=== PATIENT | female | born 1935 | race Caucasian/White ===

== ENCOUNTER 2016-07-15 10:01 | Outpatient (CLI) | payer MEDICARE, OTHER | END 2016-07-15 10:02 | disposition home or self-care (01) | DX: E78.00 Pure hypercholesterolemia, unspecified (principal); R73.01 Impaired fasting glucose ==

== ENCOUNTER 2016-11-18 10:22 | Outpatient (CLI) | payer MEDICARE, OTHER ==
[2016-11-20 21:07] LABS: TEST RESULT REPORT (())
== END 2016-11-18 10:23 | disposition home or self-care (01) ==
LOC: LAB 10:22
PROVIDERS: ATTEND Internal Medicine Rheumatology
DX: Z51.81 Encounter for therapeutic drug level monitoring (principal)
CPT/HCPCS: 36415; 81599

== ENCOUNTER 2017-03-29 09:00 | Outpatient (CLI) | payer MEDICARE, OTHER ==
[2017-03-29 10:28] LABS: BILIRUBIN,URINE NEGATIVE (NEGATIVE)
[2017-03-29 10:38] LABS: UR CULTURE IF IND INDICATED
== END 2017-03-29 09:01 | disposition home or self-care (01) ==
LOC: LAB.R 09:00
PROVIDERS: ATTEND Physician Assistant
DX: R10.9 Unspecified abdominal pain (principal)
CPT/HCPCS: 81001; 87086

== ENCOUNTER 2017-04-16 10:05 | Outpatient (CLI) | payer MEDICARE, OTHER ==
--- NOTE | 2017-04-16 16:35 | Nuclear Medicine Report ---
EXAM: BONE SCAN EXAM DATE: 04/16/2017 02:02 PM. CLINICAL HISTORY: Breast cancer left. COMPARISON: 11/11/2016. TECHNIQUE: Following the intravenous administration of 30 mCi of technetium 99m MDP and an appropriat e delay, a whole-body scan was performed in anterior and posterior projections. Site-specific spot vi ews of the region of interest were obtained in various projections. FINDINGS: Exam Quality: Normal overall osseous radiotracer uptake. Physiological tracer uptake in bilateral col lecting systems. Skull: No focal uptake. Thorax: There is moderately increased tracer uptake in the left scapula, posterior left first rib and anterior right third rib. The findings are suggestive of metastatic disease. Correlation with noncon trast CT of the chest is recommended. Pelvis: No focal lesions. Spine: There is markedly increased tracer uptake in the region of the L3-L4 and L2-L3 endplates consi stent with visible osteoarthritis on the MRI of 11/11/2016. There is moderately increased tracer upta ke in the region of the right and left T10-T11 facet joints, also visible on the recent MRI. Moderate increased tracer uptake in the right lower cervical facet joints consistent with osteoarthri tis. IMPRESSION: 1. Foci of abnormal tracer uptake in the right scapula, right third rib and left first rib, which may represent metastatic disease. Correlation with noncontrast CT of the chest is recommended. 2. Markedly increased tracer uptake in the lumbar spine, lower thoracic spine, and right lower cervic al facet joints consistent with osteoarthritis. [facility] Referring Provider Line: [phone] SITE ID: [id number]
== END 2017-04-16 10:06 | disposition home or self-care (01) ==
LOC: DI 10:05
PROVIDERS: ATTEND Internal Medicine
DX: C50.912 Malignant neoplasm of unspecified site of left female breast (principal)
CPT/HCPCS: 78306; A9503

== ENCOUNTER 2018-05-02 08:46 | Outpatient (CLI) | payer MEDICARE, OTHER ==
--- NOTE | 2018-05-02 15:31 | Nuclear Medicine Report ---
Reason: BREAST CA, BONE METS, INCREASE BACK PAIN Procedure Date: 05/02/2018 Accession Number: [id number] / [id number] Procedure: NM - Bone Whole Body CPT Code: FULL RESULT: EXAM: BONE SCAN EXAM DATE: 05/02/2018 02:27 PM. CLINICAL HISTORY: BREAST CA, BONE METS, INCREASE BACK PAIN. COMPARISON: BONE SCAN 04/16/2017 12:22 PM LUMBAR SPINE MRI W/WO 04/13/2018 9:12 AM. Thoracic spine MRI 04/13/2018 TECHNIQUE: Following the intravenous administration of 32 mCi of technetium 99m MDP and an appropriate delay, a whole-body scan was performed in anterior and posterior projections. Site-specific spot views of the region of interest were obtained in various projections. FINDINGS: Normal renal radiotracer uptake and bladder activity. Normal soft tissue activity. Overall normal osseous uptake. Similar moderate focal uptake at the posterior left first rib, anterior right third rib, right scapula, suspicious for metastatic disease. Similar marked uptake at the mid lumbar spine at approximately L3, which may correspond to pathologic compression fracture by comparison MR. Similar moderate uptake at approximately L4, indeterminate but possibly degenerative. Similar other multilevel cervical, thoracic, lumbar spinal uptake most pronounced at approximately T8-T9, indeterminate but possibly degenerative. Similar moderate focal uptake at the left posterior ilium, suspicious for metastatic disease. IMPRESSION: 1. Overall similar multifocal skeletal uptake, as noted above, with several lesions suspicious for metastatic disease. [facility]
== END 2018-05-02 08:47 | disposition home or self-care (01) ==
LOC: DI 08:46
PROVIDERS: ATTEND Nurse Practitioner Adult Health
DX: C50.919 Malignant neoplasm of unspecified site of unspecified female breast (principal); C79.51 Secondary malignant neoplasm of bone
CPT/HCPCS: 78306

== ENCOUNTER 2018-08-29 08:13 | Outpatient (CLI) | payer MEDICARE, OTHER ==
[2018-08-29] MEDS ORDERED: IOVERSOL 320 50 ML VIAL ONE (08:32)
[2018-08-29] MEDS ORDERED: IOVERSOL 320 100 ML VIAL IVP ONE ×2 (08:32→15:20)
[2018-08-29 08:38] LABS: CALCIUM 9.4 mg/dL (8.5-10.3); CREATININE 0.6 mg/dL (0.4-1.0)
[2018-08-29] MEDS ORDERED: GADOBUTROL 7.5 MMOL/7.5 ML VIAL ONE (09:33)
[2018-08-29] MEDS ORDERED: GADOBUTROL 7.5 MMOL/7.5 ML VIAL IVP ONE (10:06)
[2018-08-29] MEDS ORDERED: IOVERSOL 320 50 ML VIAL PO ONE (15:20)
--- NOTE | 2018-08-30 07:47 | MRI Report ---
Reason: METASTATIC BREAST CA, WORSENING LEFT HIP Procedure Date: 08/29/2018 Accession Number: [id number] / [id number] Procedure: MRI - Lumbar Spine W/WO CPT Code: FULL RESULT: EXAM: MRI LUMBAR SPINE WITHOUT AND WITH CONTRAST EXAM DATE: 08/29/2018 10:05 AM. CLINICAL HISTORY: Worsening left side hip pain. Worsening back pain. History of metastatic breast cancer. COMPARISONS: LUMBAR SPINE W/WO 04/13/2018 9:12 AM. TECHNIQUE: Multiplanar, multisequence T1-weighted and fluid-sensitive sequences of the lumbar spine from T12 to S1 before and after administration of intravenous contrast. Other: None. IV contrast: Without and with 7.5 mL Gadavist. FINDINGS: Neurologic Structures: The conus terminates at L1-L2. Unremarkable appearance of the conus medullaris. Alignment: No significant change of alignment. Multiple subluxations and S-shaped scoliosis are again noted. Bone Marrow: Five [id number] lumbar vertebral bodies are assumed. Multiple foci of potentially pathologic fatty marrow signal replacement are present at multiple levels. Larger enhancing lesion of the upper S1 vertebral body, now 15 mm, previously 4-5 mm, findings suspicious for growing bone metastasis. Stable approximately 16 mm enhancing presumed bone metastasis in the right upper anterior L4 vertebral body. Again seen are findings consistent with extensive metastatic tumor replacement throughout much of the L3 vertebra especially right of midline associated with moderately prominent but nonprogressive presumed pathologic compression fracture. No other evidence for acute or progressive lumbar vertebral body height loss. Disk Levels/Facets: T12-L1: Stable degenerative changes. No significant or progressive stenosis. L1-L2: Stable degenerative changes. Foraminal stenosis notable on the right as before. L2-L3: Prominent L2 on L3 anterolisthesis again noted. Advanced degenerative disk disease and facet arthropathy is again noted and there is moderate to severe stenosis of the central canal, lateral recesses and right neural foramen. These findings appear stable. The left neural foramen is patent. No new or progressive focal disk herniation. L3-L4: Stable advanced degenerative changes. Marked facet arthropathy with ligamentum flavum thickening. Again seen is a large nearly 1 cm disk extrusion left of midline protruding just above the inferior L3 endplate associated with severe left lateral recess stenosis. Moderate to marked central canal stenosis is also present. Stable appearing moderate to severe foraminal stenosis. L4-L5: Stable chronic advanced degenerative changes. The degree of stenosis appears stable, most severe involving the left neural foramen. L5-S1: Stable prominent chronic degenerative changes. No additional stenosis. Moderate foraminal stenosis bilaterally. Spinal Canal: Stable 5 mm enhancing dural based nodule at the posterior aspect of the central canal at the T10-T11 level. This may represent metastatic tumor or may be degenerative. No obvious progression. No other evidence for new or enlarging central canal or epidural enhancing mass. Musculature: Diffuse fatty atrophy. Other: None. IMPRESSION: 1. Malalignment, not significantly changed. 2. Chronic advanced degenerative changes with potentially significant multilevel, multizone lumbar stenosis, not significantly changed. 3. Enlarging metastatic bone nodule in the S1 vertebral body. 4. No other definite evidence for progression of enhancing tumor. 5. Unchanged extensive L3 vertebra deformity with compression fracture that is likely pathologic but shows no evidence for interval progression. 6. No new vertebral body compression fracture. Comment: The following findings are so common in adults without low back pain that while we report their presence, they must be interpreted with caution and in the context of the clinical situation. (Reference Annitak et al, Spine 2001) Prevalence of findings in patients without low back pain: Disk degeneration (any evidence): 92% Disk desiccation/T2 signal loss: 83% Disk height loss: 56% Disk bulge: 64% Disk protrusion: 32% Annular tear/high intensity zone: 38% [facility]
--- NOTE | 2018-08-30 22:33 | CT Report ---
Reason: METASTATIC BREAST CA, WORSENING LEFT HIP/PELVIC/LO Procedure Date: 08/29/2018 Accession Number: [id number] / [id number] Procedure: CT - Abdomen/Pelvis W CPT Code: FULL RESULT: EXAM: CT ABDOMEN AND PELVIS EXAM DATE: 08/29/2018 10:10 AM. CLINICAL HISTORY: Metastatic breast cancer. Worsening back/hip/pelvic pain. COMPARISONS: CT abdomen 06/28/2015. MRI lumbar spine 08/29/2018. TECHNIQUE: Routine helical CT imaging was performed through the abdomen and pelvis. IV contrast: 90 cc Optiray 320. Enteric contrast: Yes. Reconstructions: Coronal and sagittal. In accordance with CT protocol optimization, one or more of the following dose reduction techniques were utilized for this exam: automated exposure control, adjustment of mA and/or KV based on patient size, or use of iterative reconstructive technique. FINDINGS: Lung Bases: Interval small left pleural effusion. Atelectasis versus scarring mainly in the lung periphery. Nonspecific mild thickening lateral basilar left oblique fissure. Liver: Stable size and contour without suspicious lesion. Gallbladder/Bile Ducts: No dilated bile duct status post remote cholecystectomy. Spleen: No splenomegaly. Stable small hypodensities again seen, likely cysts or hemangiomas. Pancreas: Unremarkable for age. Adrenal Glands: No nodules. Kidneys: No hydronephrosis or axel renal atrophy. There is contrast excretion in both intrarenal collecting systems. A persistent 3 mm nonobstructive lower pole right intrarenal calculus. 6 mm hyperdensity in posterior left upper pole, uncertain if stone versus excreted contrast. Peritoneal Cavity/Bowel: No intestinal dilatation. Contracted stomach and small hiatus hernia. Colonic diverticulosis. Limited colonic detail due to variable luminal contraction and incomplete opacification. Apparent thickening/relative narrowing of the hepatic flexure and proximal transverse colon could be artifactual. Lipomatous changes of the ileocecal valve as before. The cecum is not well distended. Appendix not seen. No free fluid, free air or mesenteric adenopathy. Retroperitoneum: No mass or adenopathy. Pelvic Organs: Intact bladder. Hysterectomy. No adnexal mass. No abnormal fluid collection or adenopathy. Vasculature: Atherosclerosis including scattered calcified plaques of the tortuous abdominal aorta and iliac arteries. No aneurysm. Variant retroaortic left renal vein. Bones: Similar scoliosis, degenerative change, and chronic L3 compression deformity. See report of recent lumbar MRI. No acute fracture identified. IMPRESSION: 1. No obvious solid visceral metastasis. 2. Right and possible left nephrolithiasis. No hydronephrosis. 3. Interval small left pleural effusion. 4. Colonic diverticulosis. No bowel obstruction. Limited colonic detail, as described. 5. Bony findings as noted. See report of recent lumbar spine MRI. [facility]
== END 2018-08-29 08:14 | disposition home or self-care (01) ==
LOC: DI 08:13
PROVIDERS: ATTEND Radiology Therapeutic Radiology
DX: C50.912 Malignant neoplasm of unspecified site of left female breast (principal); C79.51 Secondary malignant neoplasm of bone; Z17.0 Estrogen receptor positive status [ER+]; M47.9 Spondylosis, unspecified; M43.16 Spondylolisthesis, lumbar region; M51.36 Other intervertebral disc degeneration, lumbar region; M48.061 Spinal stenosis, lumbar region without neurogenic claudication; M51.37 Other intervertebral disc degeneration, lumbosacral region; M48.07 Spinal stenosis, lumbosacral region; N20.0 Calculus of kidney; J90 Pleural effusion, not elsewhere classified; K57.30 Diverticulosis of large intestine without perforation or abscess without bleeding
CPT/HCPCS: 36415; 72158; 74177; 80048; A9585; Q9967

== ENCOUNTER 2018-12-13 09:52 | Outpatient (CLI) | payer MEDICARE, OTHER ==
--- NOTE | 2018-12-14 12:00 | Nuclear Medicine Report ---
Reason: BREAST CANCER Procedure Date: 12/13/2018 Accession Number: [id number] / [id number] Procedure: NM - Bone Whole Body CPT Code: FULL RESULT: EXAM: BONE SCAN EXAM DATE: 12/13/2018 02:37 PM. CLINICAL HISTORY: Breast cancer. COMPARISON: BONE SCAN 05/02/2018 9:00 AM ABDOMEN/PELVIS W/ 08/29/2018 10:08 AM LUMBAR SPINE W/WO 08/29/2018 9:35 AM BONE SCAN 04/16/2017 12:22 PM. TECHNIQUE: Following the intravenous administration of 31.9 mCi of technetium 99m MDP and an appropriate delay, a whole-body scan was performed in anterior and posterior projections. Site-specific spot views of the region of interest were obtained in various projections. FINDINGS: Exam Quality: Normal overall osseous radiotracer uptake. Physiological tracer uptake in bilateral collecting systems. Skull: No focal uptake. Thorax: Stable foci of increased uptake in the left posterior first rib, right anterior third rib, and upper right scapula. Pelvis: Stable small focus of increased uptake in the posterior left iliac bone. Spine: Persistent focal areas of increased uptake in L3, L4, T8-T9, and T5. Stable foci of increased uptake on the right side of the mid cervical spine and on the right side of the upper lumbar spine, likely degenerative. Extremities: There is a tiny focus in the intertrochanteric left femur which may be new compared to prior. There are bilateral knee prostheses noted. IMPRESSION: 1. A tiny focus of increased uptake in the intertrochanteric left femur appears new compared to the prior exam. 2. Otherwise, stable findings. [facility]
== END 2018-12-13 09:53 | disposition home or self-care (01) ==
LOC: DI 09:52
PROVIDERS: ATTEND Internal Medicine Hematology & Oncology
DX: C50.912 Malignant neoplasm of unspecified site of left female breast (principal)
CPT/HCPCS: 78306

== ENCOUNTER 2019-03-13 15:25 | Outpatient (CLI) | payer MEDICARE, OTHER ==
--- NOTE | 2019-03-13 16:29 | XRAY Report ---
Reason: SHORTNESS OF BREATH Procedure Date: 03/13/2019 Accession Number: [id number] / [id number] Procedure: XR - Chest 2 View X-Ray CPT Code: 13269 Final Report FULL RESULT: EXAM: CHEST RADIOGRAPHY EXAM DATE: 03/13/2019 03:36 PM. CLINICAL HISTORY: Shortness of breath. COMPARISON: CHEST 2 VIEW PA/LAT 06/10/2014 6:16 PM. TECHNIQUE: 2 views. FINDINGS: Lungs/Pleura: No focal opacities evident. Blunting of the costophrenic sulci, similar to the prior, favors chronic pleural thickening more than small effusions. No pneumothorax. Normal volumes. Mediastinum: Heart and mediastinal contours are unremarkable. Other: Stable operative changes of left mastectomy. Interval anterior wedging compression of T8 vertebral body with loss of 90% of the anterior bone height. Probable mild compression of T10 as well. IMPRESSION: No acute infiltrate or edema. Interval anterior wedging compression fractures T8 and T10. [facility]
== END 2019-03-13 15:26 | disposition home or self-care (01) ==
LOC: DI 15:25
PROVIDERS: ATTEND Family Medicine
DX: R06.02 Shortness of breath (principal); J45.909 Unspecified asthma, uncomplicated; M48.54XA Collapsed vertebra, not elsewhere classified, thoracic region, initial encounter for fracture
CPT/HCPCS: 71046

== ENCOUNTER 2019-03-15 07:37 | Outpatient (CLI) | payer MEDICARE, OTHER ==
[2019-03-15 08:02] LABS: BASOPHILS # (AUTO) 0.1 10^3/uL (0.0-0.1); BASOPHILS % (AUTO) 1.3 %; EOSINOPHILS # (AUTO) 0.2 10^3/uL (0.0-0.7); EOSINOPHILS % (AUTO) 4.6 %; HGB - HEMOGLOBIN 12.8 g/dL (12.0-16.0); LYMPHOCYTES # (AUTO) 1.6 10^3/uL (1.5-3.5); LYMPHOCYTES % (AUTO) 39.5 %; MEAN CORPUSCULAR HEMOGLOBIN 29.9 pg (27.0-31.0); MEAN CORPUSCULAR HGB CONC 32.3 g/dL (32.0-36.0); MEAN CORPUSCULAR VOLUME 92.5 fL (81.0-99.0); MONOCYTES # (AUTO) 0.6 10^3/uL (0.0-1.0); MONOCYTES % (AUTO) 15.4 %; NEUTROPHILS # (AUTO) 1.5 10^3/uL (1.5-6.6); NEUTROPHILS % (AUTO) 38.7 %; PLT - PLATELET COUNT 265 10^3/uL (130-450); RED BLOOD COUNT 4.28 10^6/uL (4.20-5.40); RED CELL DISTRIBUTION WIDTH 16.2 % (12.0-15.0)
[2019-03-15 08:13] LABS: ALBUMIN 3.5 g/dL (3.2-5.5); ALBUMIN/GLOBULIN RATIO 0.9 (1.0-2.2); BILIRUBIN,TOTAL 0.8 mg/dL (0.2-1.0); CREATININE 0.7 mg/dL (0.4-1.0); TOTAL PROTEIN 7.5 g/dL (6.7-8.2)
[2019-03-15 08:29] LABS: THYROID STIMULATING HORMONE 4.54 uIU/mL (0.34-5.60)
== END 2019-03-15 07:38 | disposition home or self-care (01) ==
LOC: LAB 07:37
PROVIDERS: ATTEND Family Medicine
DX: I10 Essential (primary) hypertension (principal); C50.419 Malignant neoplasm of upper-outer quadrant of unspecified female breast; D63.8 Anemia in other chronic diseases classified elsewhere; E78.00 Pure hypercholesterolemia, unspecified; R60.9 Edema, unspecified
CPT/HCPCS: 36415; 80053; 82607; 82746; 84443; 85025

== ENCOUNTER 2019-05-30 09:10 | Outpatient (CLI) | payer MEDICARE, OTHER ==
--- NOTE | 2019-05-30 15:37 | Nuclear Medicine Report ---
Reason: BREAST CA Procedure Date: 05/30/2019 Accession Number: [id number] / [id number] Procedure: NM - Bone Whole Body CPT Code: Final Report FULL RESULT: EXAM: BONE SCAN EXAM DATE: 05/30/2019 01:59 PM. CLINICAL HISTORY: BREAST CA. COMPARISON: BONE SCAN 12/13/2018 1:47 PM ABDOMEN/PELVIS W/ 08/29/2018 10:08 AM BONE SCAN 05/02/2018 9:00 AM. TECHNIQUE: Following the intravenous administration of 31 mCi of technetium 99m MDP and an appropriate delay, a whole-body scan was performed in anterior and posterior projections. Site-specific spot views of the region of interest were obtained in various projections. FINDINGS: Exam Quality: Normal overall osseous radiotracer uptake. Physiological tracer uptake in bilateral collecting systems. Skull: No focal uptake. Thorax: There are stable small foci of increased tracer uptake in the left posterior first rib, right anterior third rib, right scapula. Pelvis: There is a small focus in the posterior left iliac bone which appears less intense compared to prior. There are additional tiny foci in the left iliac bone and right ischial tuberosity which may be slightly more conspicuous compared to prior. Spine: Persistent lesions in L3, L4, T8-T9, T5. Additional stable focus in cervical spine. Mild S-shaped spine scoliosis. Extremities: There is a small focus in the subtrochanteric left femur, slightly more intense compared to prior studies. IMPRESSION: 1. Persistent multifocal skeletal metastatic disease. 2. Lesions in the pelvic bones and proximal left femur appears slightly more intense compared to prior studies. No definite new lesions. [facility]
== END 2019-05-30 09:11 | disposition home or self-care (01) ==
LOC: DI 09:10
PROVIDERS: ATTEND Internal Medicine Hematology & Oncology
DX: C50.912 Malignant neoplasm of unspecified site of left female breast (principal); C79.51 Secondary malignant neoplasm of bone
CPT/HCPCS: 78306

== ENCOUNTER 2019-09-04 09:34 | Outpatient (CLI) | payer MEDICARE, OTHER ==
[2019-09-04 09:54] LABS: BASOPHILS # (AUTO) 0.1 10^3/uL (0.0-0.1); BASOPHILS % (AUTO) 1.7 %; EOSINOPHILS # (AUTO) 0.2 10^3/uL (0.0-0.7); EOSINOPHILS % (AUTO) 3.6 %; HGB - HEMOGLOBIN 13.3 g/dL (12.0-16.0); LYMPHOCYTES # (AUTO) 1.7 10^3/uL (1.5-3.5); LYMPHOCYTES % (AUTO) 41.1 %; MEAN CORPUSCULAR HEMOGLOBIN 30.7 pg (27.0-31.0); MEAN CORPUSCULAR HGB CONC 33.5 g/dL (32.0-36.0); MEAN CORPUSCULAR VOLUME 91.7 fL (81.0-99.0); MEAN PLATELET VOLUME 8.8 fL (7.9-10.8); MONOCYTES # (AUTO) 0.6 10^3/uL (0.0-1.0); NEUTROPHILS # (AUTO) 1.6 10^3/uL (1.5-6.6); NEUTROPHILS % (AUTO) 38.9 %; PLT - PLATELET COUNT 266 10^3/uL (130-450); RED BLOOD COUNT 4.33 10^6/uL (4.20-5.40); RED CELL DISTRIBUTION WIDTH 15.9 % (12.0-15.0); WHITE BLOOD COUNT 4.2 x10^3/uL (4.8-10.8)
[2019-09-04 10:51] LABS: THYROID STIMULATING HORMONE 4.46 uIU/mL (0.34-5.60)
== END 2019-09-04 09:35 | disposition home or self-care (01) ==
LOC: LAB 09:34
PROVIDERS: ATTEND Internal Medicine Rheumatology
DX: M05.79 Rheumatoid arthritis with rheumatoid factor of multiple sites without organ or systems involvement (principal); Z79.899 Other long term (current) drug therapy; D63.8 Anemia in other chronic diseases classified elsewhere; E78.00 Pure hypercholesterolemia, unspecified; I10 Essential (primary) hypertension; R53.81 Other malaise
CPT/HCPCS: 36415; 81599; 82607; 84443; 85025

== ENCOUNTER 2019-11-21 08:44 | Outpatient (CLI) | payer MEDICARE, OTHER ==
--- NOTE | 2019-11-21 17:58 | Nuclear Medicine Report ---
PROCEDURE: Bone Whole Body INDICATIONS: Secondary malignant neoplasm of bone RADIOPHARMACEUTICAL: 27.0 mCi Tc-99m MDP IV. TECHNIQUE: Delayed whole-body scintigrams were obtained approximately 3-4 hours after intravenous injection of r adiotracer. Anterior and posterior views were acquired from vertex to feet. Additional left and rig ht lateral views of the skull were obtained. COMPARISON: 05/30/2019 FINDINGS: These images demonstrate an increased number of abnormal foci of increased radio pharmaceu tical uptake within the axial and appendicular skeleton. Specifically, there is an increased number o f lesions in the thoracic and lumbar spine, as well as an increased number of lesions within the pelv ic bones and proximal femora. There are also 2 new lesions in the mid humeral diaphysis on the left. There are at least 5 new lesions in the skull. Several previously existing lesions are either larger or more conspicuous on the current study, suggesting worsening disease. IMPRESSION: Disease progression with increased size and increased number of numerous axial and append icular metastatic lesions. Reviewed by: Henry Hess MD on 11/21/2019 5:57 PM PDT Approved by: Henry Hess MD on 11/21/2019 5:57 PM PDT Station ID: [id number]
== END 2019-11-21 08:45 | disposition home or self-care (01) ==
LOC: DI 08:44
PROVIDERS: ATTEND Internal Medicine Hematology & Oncology
DX: C79.51 Secondary malignant neoplasm of bone (principal)
CPT/HCPCS: 78306

== ENCOUNTER 2020-01-15 11:48 | Outpatient (CLI) | payer MEDICARE, OTHER ==
--- NOTE | 2020-01-15 15:28 | XRAY Report ---
PROCEDURE: Chest 2 View X-Ray INDICATIONS: PYREXIA TECHNIQUE: 2 view(s) of the chest. COMPARISON: 03/13/2019 and similar study.. FINDINGS: Surgical changes and devices: Surgical clips are seen over the left axilla and left chest wall, suspe ct prior breast carcinoma surgery.. Lungs and pleura: No pleural effusions or pneumothorax. Lungs are clear. Mediastinum: Mediastinal contours are normal. Heart size is normal. Bones and chest wall: No suspicious bony abnormalities. Soft tissues appear unremarkable. IMPRESSION: Mildly reduced inspiratory volume, no sign of pneumonia or neoplasm found. Presumed prior breast carcinoma surgery on the left. Reviewed by: Jan Manuel MD on 01/15/2020 3:27 PM PDT Approved by: Jan Manuel MD on 01/15/2020 3:27 PM PDT Station ID: [id number]
== END 2020-01-15 11:49 | disposition home or self-care (01) ==
LOC: DI 11:48
PROVIDERS: ATTEND Family Medicine
DX: R50.9 Fever, unspecified (principal)
CPT/HCPCS: 71046

== ENCOUNTER 2020-08-05 08:38 | Outpatient (CLI) | payer MEDICARE, OTHER ==
--- NOTE | 2020-08-05 16:10 | Nuclear Medicine Report ---
PROCEDURE: Bone Whole Body INDICATIONS: 2NDARY NEOPLASM OF BONE. Prior history of right-sided breast carcinoma. RADIOPHARMACEUTICAL: 24.8 mCi Tc-99m MDP IV. TECHNIQUE: Delayed whole-body scintigrams were obtained approximately 3-4 hours after intravenous injection of r adiotracer. Anterior and posterior views were acquired from vertex to feet. Additional left and rig ht oblique views of the head/neck/upper chest were obtained. COMPARISON: Prior bone scan imaging 11/21/2019 and 12/13/2018 reviewed. FINDINGS: A calvarial lesion previously present at the right frontoparietal along the cervical spine degenerative changes are again noted, and a focus of asymmetric increased isotope deposition on the right posteriorly likely represents a metastatic focus rather than degenerative change but this also was previously present. More inferiorly at the sternum and 2 right-sided upper chest ribs (likely rel ated 1 anteriorly and ribs 3 anterolaterally) show slight increased isotope deposition. Additional fo ci of abnormal activity along the ribs both posteriorly and anteriorly are noted, none of which appea r new. 2 metastatic foci are present within the mid left humerus, previously the case. Considering differenc es in technique these likely have not changed. Spine isotope uptake at the thoracolumbar junction and lumbosacral spine is more prominent, but potentially simply an artifact of darker technique. However , there appears to be a greater degree of hydronephrosis at the right kidney when compared to the vibha or study from October of last year. Several scattered foci of uptake at the pelvis and hips bilaterally, right greater than left, are present which appears slightly more prominent considering differences i n technique. A new focus is seen at the upper margin of the left iliac crest in an area previously no rmal. This is small in size. Note is made of bilateral knee arthroplasties and no evidence of osseous metastatic disease over the lower extremities below the hip level. IMPRESSION: 1. The prior nuclear medicine bone scan when compared to an earlier comparison had shown multiple sit es of definite worsening but the current study shows only a small degree of interval worsening, some of which may be an artifact of darker imaging technique currently. There is, however, a definite new focus of isotope deposition at the superior margin of the left iliac crest, best seen on posterior vi ew imaging. This area was previously normal. 2. There also appears to be a greater degree of hydronephrosis at the right kidney, potentially an in dication of urinary tract outflow restriction that has worsened either within the ureter or immediate ly adjacent along the course of the ureter to the bladder level. CT IVP scanning may be warranted to assess for etiology of this apparent change. Reviewed by: Jan Manuel MD on 08/05/2020 4:08 PM PDT Approved by: Jan Manuel MD on 08/05/2020 4:08 PM PDT Station ID: [id number]
== END 2020-08-05 08:39 | disposition home or self-care (01) ==
LOC: DI 08:38
PROVIDERS: ATTEND Internal Medicine Hematology & Oncology
DX: R93.7 Abnormal findings on diagnostic imaging of other parts of musculoskeletal system (principal); N13.30 Unspecified hydronephrosis
CPT/HCPCS: 78306

== ENCOUNTER 2020-09-20 | Outpatient (CLI) | payer MEDICARE, OTHER | END 2020-09-20 17:45 | disposition critical access hospital (66) | CPT/HCPCS: A0425; A0429 ==

== ENCOUNTER 2020-09-20 18:01 | Emergency (ER) | payer MEDICARE, OTHER ==
--- NOTE | 2020-09-20 18:19 | ED Physician Documentation ---
History of Present Illness - Stated complaint Stated Complaint: GLF - Chief complaint Chief Complaint: Trauma Hd/Nk - History obtained from History obtained from: Patient, EMS - History of Present Illness Timing: Today, How many hours ago (1) Pain level max: 7 Pain level now: 6 - Additonal information Additional information: Patient is an 85-year-old female with metastatic breast cancer who was brought in by EMS today after ground-level fall at home. She states that she stubbed her toe and then fell forward striking the ground. This occurred about 1 hour prior to arrival. She states she could not get up off the ground. Worse with movement, better with rest. Has chronic back pain, worse after the fall. Has a laceration to the left forehead. Does not think that she lost consciousness but is unsure. Is not on blood thinners. Tetanus up-to-date. Review of Systems Ten Systems: 10 systems reviewed and negative Constitutional: denies: Fever, Chills Ears: denies: Ear pain Nose: denies: Rhinorrhea / runny nose, Congestion Throat: denies: Sore throat Cardiac: denies: Chest pain / pressure, Palpitations Respiratory: denies: Dyspnea, Cough GI: denies: Abdominal Pain, Nausea, Vomiting, Diarrhea : denies: Dysuria Skin: denies: Rash Neurologic: denies: Focal weakness, Numbness, Confused PD PAST MEDICAL HISTORY - Past Medical History Cardiovascular: Hypertension GI: GERD Musculoskeletal: Rheumatoid arthritis - Past Surgical History General: Cholecystectomy Ortho: Knee replacement /[employer] 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[employer]: Hysterectomy, Mastectomy - Present Medications Home Medications: Ambulatory Orders Medication Instructions Recorded Confirmed Acetaminophen [Tylenol] 325 mg ORAL BID PRN 09/01/12 09/10/20 Calcium Carbonate [Calcium] 600 mg ORAL BID 09/01/12 09/10/20 Celecoxib [Celebrex] 200 mg PO DAILY 09/01/12 09/10/20 InFLIXimab [Remicade] 600 mg IM/IV MAINTENANCE.IV 09/01/12 09/10/20 Leflunomide [Arava] 20 mg PO DAILY 09/01/12 09/10/20 Multivitamin [Multivitamins] 1 each PO DAILY 09/01/12 09/10/20 [place]-3 Fatty Acids/Fish Oil 2 each PO DAILY 09/01/12 09/10/20 [[place] 3 1,000 mg Softgel] Pantoprazole Sodium 40 mg PO DAILY 09/01/12 09/10/20 Sennosides/Docusate Sodium [Senna 1 each PO DAILY PRN 09/01/12 09/10/20 Plus Tablet] Loratadine [Claritin] 10 mg PO DAILY 08/02/14 09/10/20 Cholecalciferol (Vitamin D3) 5,000 unit PO DAILY 06/18/15 09/10/20 [Vitamin D3] Fenofibric Acid (Choline) 45 mg PO DAILY 06/18/15 09/10/20 [Trilipix] HYDROcod/ACETAM 5/325 [Vicodin 1 - 2 ea PO Q4H PRN 08/01/15 09/10/20 5/325] Albuterol Sulfate [Proair Hfa 4 puffs INH DAILY 07/28/17 09/10/20 Inhaler] Palbociclib [Ibrance] 0 mg PO DAILY 07/23/20 09/10/20 Fluticasone [Flonase] 1 spray DAILY 09/20/20 09/20/20 Furosemide [Lasix] 20 mg DAILY 09/20/20 09/20/20 Zoledronic Acid 4 mg/100 ml 09/20/20 09/20/20 [Zometa 4 mg/100 ml] inFLIXimab [Remicade] 200 mg IV ONCE 09/20/20 09/20/20 - Allergies Allergies/Adverse Reactions: Allergies Allergy/AdvReac Type Severity Reaction Status Date / Time pollen extracts Allergy Mild Respiratory Verified 09/20/20 18:18 - Social History Does the pt smoke?: No Smoking Status: Never smoker Does the pt drink ETOH?: Yes Does the pt have substance abuse?: No - Immunizations Immunizations are current?: Yes PD ED PE NORMAL - Vitals Vital signs reviewed: Yes - General General: Alert and oriented X 3, No acute distress, Well developed/nourished, Other (Pale appearing) - HEENT HEENT: PERRL, EOMI, Pharynx benign, Dentition benign, Other (Laceration to the left eyebrow. Mild tenderness over the nose and bilateral zygomatic arches) - Neck Neck: Other (Mild tender to palpation mid C-spine. No step-off or deformity. C-collar in place) - Cardiac Cardiac: RRR, Strong equal pulses - Respiratory Respiratory: No respiratory distress, Clear bilaterally - Abdomen Abdomen: Soft, Non tender, Non distended - Derm Derm: Warm and dry - Extremities Extremities: Normal ROM s pain (Normal range of motion of the hips, shoulders, knees, elbows, ankles and wrists. B) - Neuro Neuro: Alert and oriented X 3, plastic press molder 2-12 intact, No motor deficit, No sensory deficit - Psych Psych: Normal mood, Normal affect Results - Vitals Vitals: Vital Signs - 24 hr 09/20/20 09/20/20 09/20/20 18:05 20:09 21:34 Temperature 37 C 36.7 C 36.6 C Heart Rate 59 L 62 74 Respiratory 16 19 18 Rate Blood Pressure 159/62 H 158/73 H 135/74 H O2 Saturation 96 94 94 Oxygen O2 Source Room air - Labs Labs: Laboratory Tests 09/20/20 09/20/20 09/20/20 19:27 19:27 19:41 WBC 7.0 RBC 3.49 L Hgb 11.8 L Hct 34.6 L MCV 99.1 H MCH 33.8 H MCHC 34.1 RDW 15.1 H Plt Count 286 MPV 8.6 Neut # (Auto) 5.4 Lymph # (Auto) 1.1 L Bent # (Auto) 0.3 Eos # (Auto) 0.1 Baso # (Auto) 0.1 Absolute Nucleated RBC 0.00 Nucleated RBC % 0.0 Sodium 129 L Potassium 4.7 Chloride 98 L Carbon Dioxide 22 Anion Gap 9.0 BUN 20 Creatinine 0.8 Estimated GFR (MDRD) 68 L Glucose 87 Calcium 9.5 Total Bilirubin 0.9 AST 52 H ALT 24 Alkaline Phosphatase 41 L Total Protein 7.9 Albumin 3.6 Globulin 4.3 H Albumin/Globulin Ratio 0.8 L Lipase 32 Urine Color YELLOW Urine Clarity CLEAR Urine pH 7.0 Ur Specific [place] 1.015 Urine Protein NEGATIVE Urine Glucose (UA) NEGATIVE Urine Ketones NEGATIVE Urine Occult Blood NEGATIVE Urine Nitrite NEGATIVE Urine Bilirubin NEGATIVE Urine Urobilinogen 0.2 (NORMAL) Ur Leukocyte Esterase NEGATIVE Ur Microscopic Review NOT INDICATED Urine Culture Comments NOT INDICATED - Rads (name of study) head CT Radiology: Prelim report reviewed, EMP read contemporaneously, See rad report c-spine CT Radiology: Prelim report reviewed, EMP read contemporaneously, See rad report maxillofacial CT Radiology: Prelim report reviewed, EMP read contemporaneously, See rad report chest CT Radiology: Prelim report reviewed, EMP read contemporaneously, See rad report L spine CT Radiology: Prelim report reviewed, EMP read contemporaneously, See rad report Procedures - Laceration (location) L eyebrow Length in cm: 2 Wound type: Stellate, Irregular, Clean Neurovascular status: Sensory intact, Motor intact, Vascular intact Wound preparation: Irrigated copiously NS Skin layer closure: Dermabond, Steri strips Other: Patient tolerated well, No complications, Neurovascular intact, Tetanus UTD PD MEDICAL DECISION MAKING - ED course Complexity details: reviewed results, re-evaluated patient, considered differential, d/w patient, d/w family ED course: There are no acute findings on radiographic imaging. She has multiple old compression fractures. Has multiple lytic lesions as well. She does have a laceration to the left eyebrow. Discussed sutures versus glue, the patient prefers glue. Steri-Strips were placed and glue applied. Head injury instructions given at bedside. Patient and family counseled regarding signs and symptoms for which I believe and urgent re-evaluation would be necessary. Patient with good understanding of and agreement to plan and is comfortable going home at this time This document was made in part using voice recognition software. While efforts are made to proofread this document, sound alike and grammatical errors may occur. Departure - Departure Disposition: 01 Home, Self Care Clinical Impression: Fall Qualifiers: Encounter type: initial encounter Qualified Code(s): W19.XXXA - Unspecified fall, initial encounter Forehead laceration Qualifiers: Encounter type: initial encounter Qualified Code(s): S01.81XA - Laceration without foreign body of other part of head, initial encounter Closed head injury Qualifiers: Encounter type: initial encounter Qualified Code(s): S09.90XA - Unspecified injury of head, initial encounter Condition: Good Instructions: ED Head Injury Closed, ED Laceration Facial Skin Glue Follow-Up: Umesh Francisco MD [Primary Care Provider] - Within 1 week Comments: Follow-up with your doctor for further care. Return if you worsen. Your CT scans do not show any acute abnormalities today. You can use your pain medication at home as needed for pain. Discharge Date/Time: 09/20/20 21:37
[2020-09-20 19:33] LABS: BASOPHILS # (AUTO) 0.1 10^3/uL (0.0-0.1); BASOPHILS % (AUTO) 1.2 %; EOSINOPHILS # (AUTO) 0.1 10^3/uL (0.0-0.7); EOSINOPHILS % (AUTO) 1.6 %; HCT - HEMATOCRIT 34.6 % (37.0-47.0); HGB - HEMOGLOBIN 11.8 g/dL (12.0-16.0); LYMPHOCYTES # (AUTO) 1.1 10^3/uL (1.5-3.5); LYMPHOCYTES % (AUTO) 15.5 %; MEAN CORPUSCULAR HEMOGLOBIN 33.8 pg (27.0-31.0); MEAN CORPUSCULAR HGB CONC 34.1 g/dL (32.0-36.0); MEAN CORPUSCULAR VOLUME 99.1 fL (81.0-99.0); MEAN PLATELET VOLUME 8.6 fL (7.9-10.8); MONOCYTES # (AUTO) 0.3 10^3/uL (0.0-1.0); NEUTROPHILS # (AUTO) 5.4 10^3/uL (1.5-6.6); PLT - PLATELET COUNT 286 10^3/uL (130-450); RED BLOOD COUNT 3.49 10^6/uL (4.20-5.40); RED CELL DISTRIBUTION WIDTH 15.1 % (12.0-15.0)
--- NOTE | 2020-09-20 19:38 | CT Report ---
PROCEDURE: CERVICAL SPINE WO INDICATIONS: fall, neck pain TECHNIQUE: Noncontrast 3 mm thick sections acquired from the skull base to the T4 level. Sagittal and coronal r eformats were then constructed. For radiation dose reduction, the following was used: automated exp osure control, adjustment of mA and/or kV according to patient size. COMPARISON: None. FINDINGS: Image quality: Excellent. Bones: No fractures or dislocations. Visualized superior ribs are intact. Multiple sclerotic metas tatic lesions, involving C3, C4, C5, C6, T1, T2, and T3. Advanced multilevel cervical facet arthropat hy. There is mixed lytic and sclerotic disease involving the C1 vertebral body. Ill-defined calcifica tions posterior lateral to the dens at C1-C2 most likely represents bilateral vertebral artery calcif ications. Soft tissues: Prevertebral soft tissues are normal in thickness. No paravertebral hematomas. No ap ical pneumothoraces. IMPRESSION: 1. No evidence of acute cervical fracture or dislocation. 2. Sclerotic metastatic disease involves multiple levels. 3. There is mixed sclerotic and lytic appearance of C1. Above discussed with WILLIAM HOOVER at the time of dictation. Reviewed by: Travis Pascal MD on 09/20/2020 7:37 PM PDT Approved by: Travis Pascal MD on 09/20/2020 7:37 PM PDT Station ID: [id number]
--- NOTE | 2020-09-20 19:42 | CT Report ---
PROCEDURE: HEAD WO INDICATIONS: fall, head injury TECHNIQUE: Noncontrast 4.5 mm thick angled axial sections acquired from the foramen magnum to the vertex. For r adiation dose reduction, the following was used: automated exposure control, adjustment of mA and/or kV according to patient size. COMPARISON: None. FINDINGS: Image quality: Excellent. CSF spaces: Basal cisterns are patent. No extra-axial fluid collections. Ventricles are normal in size and shape. Brain: No midline shift. No intracranial masses or hemorrhage. Aaron-white matter interface is norm al. Age-related volume loss and mild small vessel ischemic change. Skull and face: Calvarium and visualized facial bones are intact, without suspicious lesions. Sinuses: Visualized sinuses and mastoids are clear. IMPRESSION: No evidence acute stroke, hemorrhage, or mass. Reviewed by: Travis Pascal MD on 09/20/2020 7:41 PM PDT Approved by: Travis Pascal MD on 09/20/2020 7:41 PM PDT Station ID: [id number]
[2020-09-20 19:51] LABS: ALBUMIN 3.6 g/dL (3.2-5.5); ALBUMIN/GLOBULIN RATIO 0.8 (1.0-2.2); BILIRUBIN,TOTAL 0.9 mg/dL (0.2-1.0); CALCIUM 9.5 mg/dL (8.5-10.3); CREATININE 0.8 mg/dL (0.4-1.0); POTASSIUM 4.7 mmol/L (3.5-5.0); TOTAL PROTEIN 7.9 g/dL (6.7-8.2)
--- NOTE | 2020-09-20 19:52 | CT Report ---
PROCEDURE: CHEST WO INDICATIONS: fall, chest/back pain TECHNIQUE: Noncontrast 5 mm thick sections acquired from the pulmonary apices to the posterior costophrenic angl es. 7 mm thick coronal and sagittal MIP reformats were then acquired. For radiation dose reduction, the following was used: automated exposure control, adjustment of mA and/or kV according to patient size. COMPARISON: CT abdomen and pelvis dated 08/29/2018 FINDINGS: Image quality: Excellent. Lungs and pleura: No acute air space opacities. Mild pulmonary interstitial fibrosis. Small ill-defi mitra pulmonary nodules may potentially represent pulmonary metastatic disease. Small left pleural effu eva. Central and peripheral airways are patent and normal in caliber. Mediastinum: Heart size is normal. No pericardial effusion. Moderately advanced coronary artery vinnie cifications. No mediastinal adenopathy by size criteria. Thoracic aorta and central pulmonary arteri es are normal in size. Esophagus is normal in caliber. No hiatal hernia. Bones and chest wall: Multiple sclerotic metastatic lesions. There are numerous compression fractures , including a mild likely subacute T6 compression, a high-grade age-indeterminate T8 compression, and mild chronic inferior endplate T10 compression, and a probable subacute L1 compression. There is a l ytic posterior aspect vertebral body metastatic lesion involving T7. Sclerotic lesions involves T1, T 2, T3, T4, T5, as, T12, and L1. No axillary or supraclavicular adenopathy by size criteria. The thyr oid is normal in size and there are no incidental findings. Abdomen: Interval development of severe right hydronephrosis and perinephric stranding. IMPRESSION: 1. Extensive bony metastatic disease. 2. Numerous compression fractures, including subacute T6 and L1 compression fractures and a marked ag e-indeterminate T8 compression fracture. 3. Pulmonary interstitial fibrosis. 4. Question subtle pulmonary metastatic disease. 5. Moderately advanced coronary artery disease. 6. Small left pleural effusion. 7. Development of severe right hydronephrosis. Reviewed by: Travis Pascal MD on 09/20/2020 7:50 PM PDT Approved by: Travis Pascal MD on 09/20/2020 7:50 PM PDT Station ID: [id number]
--- NOTE | 2020-09-20 20:01 | CT Report ---
PROCEDURE: LUMBAR SPINE WO INDICATIONS: fall, back pain, mets to spine TECHNIQUE: Noncontrast 3 mm thick sections acquired from the T12 level to the sacrum. Sagittal and coronal refo rmats were constructed. For radiation dose reduction, the following was used: automated exposure co ntrol, adjustment of mA and/or kV according to patient size. COMPARISON: CT abdomen and pelvis dated 08/29/2018, lumbar spine MRI with and without contrast dated 08/29/2018. FINDINGS: Image quality: Excellent. Bones: Again noted is metastatic disease involving the lower thoracic spine, lumbar spine, and sacrum . There is interval increase in bony destruction involving the L3 vertebral body. There is a mild sub acute L1 compression fracture, likely pathologic. Severe canal stenosis is again noted at L2-L3, L3-L4, and L4-L5. Soft tissues: No retroperitoneal masses or hematomas. Visualized aorta is normal in caliber. Inter ingrid development of severe right hydronephrosis. IMPRESSION: 1. Extensive bony metastatic disease. 2. Progression of a pathologic compression of L3, which is involved with a combination of lytic and b lastic disease. 3. Development of a mild subacute L1 compression fracture. 4. Severe canal stenosis at L2-L3, L3-L4, and L4-L5 again noted. Reviewed by: Travis Pascal MD on 09/20/2020 7:59 PM PDT Approved by: Travis Pascal MD on 09/20/2020 7:59 PM PDT Station ID: [id number]
[2020-09-20 20:03] LABS: BILIRUBIN,URINE NEGATIVE (NEGATIVE); GLUCOSE, URINE (UA) NEGATIVE (NEGATIVE); KETONES,URINE (UA) NEGATIVE (NEGATIVE); LEUKOCYTE ESTERASE, URINE NEGATIVE (NEGATIVE); NITRITE,URINE NEGATIVE (NEGATIVE); OCCULT BLOOD,URINE NEGATIVE (NEGATIVE); PROTEIN,URINE NEGATIVE (NEGATIVE); UROBILINOGEN,URINE 0.2 (NORMAL) E.U./dL (NORMAL)
--- NOTE | 2020-09-20 20:03 | CT Report ---
PROCEDURE: MAXILLOFACIAL WO INDICATIONS: fall, facial trauma TECHNIQUE: Noncontrast 1.5 mm thick axial images acquired from the mandible through the frontal sinuses, with co olayinka and sagittal reformatting. For radiation dose reduction, the following was used: automated ex posure control, adjustment of mA and/or kV according to patient size. COMPARISON: None. FINDINGS: Image quality: Excellent. Bones and teeth: Sclerotic metastatic lesion involving the clivus. Mixed lytic and blastic bony meta static disease involving C1. Sclerotic C3 bony metastatic disease. Orbital cruz are intact. Sinus w alls show no fracture or deformity. Nasal bones and septum are intact. Visualized portions of the m andible demonstrate no fractures or subluxation. Bilateral TMJ degenerative arthritis. Zygomatic arch es are intact. Pterygoid plates are intact. Visualized portions of the skull base and auditory latha ls are intact. Sinuses: Paranasal sinuses are aerated, without fluid levels, mucosal thickening, or mucoceles. Mas toid air cells are aerated. Soft tissues: No edema, masses, or fluid collections. No enlarged lymph nodes. No soft tissue lace rations or debris. Vascular: Visualized vascular structures appear normal in the absence of contrast. Bony vascular fo ramina and canals are intact. IMPRESSION: 1. Bony metastatic disease to the clivus and upper cervical spine. 2. No evidence of displaced facial fracture or mandibular fracture. 3. Bilateral TMJ degenerative arthritis. Reviewed by: Travis Pascal MD on 09/20/2020 8:02 PM PDT Approved by: Travis Pascal MD on 09/20/2020 8:02 PM PDT Station ID: [id number]
[2020-09-20 20:06] LABS: CLARITY,URINE CLEAR (CLEAR)
[2020-09-20] MEDS ORDERED: HYDROcod/ACETAM 5/325 MG TABLET PO STA (21:18)
[2020-09-20 21:35] VITALS: BP 135/74
== END 2020-09-20 21:37 | disposition home or self-care (01) ==
LOC: ED 18:01
DX: S09.90XA Unspecified injury of head, initial encounter (principal); W01.0XXA Fall on same level from slipping, tripping and stumbling without subsequent striking against object, initial encounter; Y93.01 Activity, walking, marching and hiking
CPT/HCPCS: 12011; 36415; 70450; 70486; 71250; 72125; 72131; 80053; 81003; 83690; 85025; 99282; 99284; A9270; 81001; 87086

== ENCOUNTER 2020-11-27 08:45 | Outpatient (CLI) | payer MEDICARE, OTHER ==
--- NOTE | 2020-11-27 15:55 | Nuclear Medicine Report ---
PROCEDURE: Bone Whole Body INDICATIONS: SECONDARY MALIGNANT NEOPLASM OF BONE RADIOPHARMACEUTICAL: 24.8 mCi Tc-99m MDP IV. TECHNIQUE: Delayed whole-body scintigrams were obtained approximately 3-4 hours after intravenous injection of r adiotracer. Anterior and posterior views were acquired from vertex to feet. Additional left and rig ht oblique views of the skull were obtained. COMPARISON: Bone scan dated 08/05/2020. CT maxillofacial dated 09/20/2020. CT lumbar spine dated 021. CT chest and cervical spine dated 09/20/2020. CT head dated 09/20/2020. FINDINGS: Numerous osseous metastases disease are again noted involving the calvarium, left mid arron moshe, bilateral ribs, thoracic and lumbar spine, bony pelvis and proximal femurs bilaterally. Scoliosi s incidentally noted. Prominent multilevel cervical tracer activity in keeping with metastatic diseas e as seen on the prior CTs. IMPRESSION: Grossly stable examination since 08/05/2020 Reviewed by: Reinier Faulkner MD on 11/27/2020 3:53 PM PDT Approved by: Reinier Faulkner MD on 11/27/2020 3:53 PM PDT Station ID: [id number]
== END 2020-11-27 08:46 | disposition home or self-care (01) ==
LOC: DI 08:45
PROVIDERS: ATTEND Internal Medicine Hematology & Oncology
DX: C79.51 Secondary malignant neoplasm of bone (principal)
CPT/HCPCS: 78306

== ENCOUNTER 2021-04-21 09:26 | Outpatient (CLI) | payer MEDICARE, OTHER ==
--- NOTE | 2021-04-21 16:22 | Nuclear Medicine Report ---
PROCEDURE: Bone Whole Body INDICATIONS: BREAST AND BONE CA RADIOPHARMACEUTICAL: 24.7 mCi Tc-99m MDP IV. TECHNIQUE: Delayed whole-body scintigrams were obtained approximately 3-4 hours after intravenous injection of r adiotracer. Anterior and posterior views were acquired from vertex to feet. Additional left and rig ht oblique views of the were obtained. COMPARISON: 11/27/2020, 08/05/2020, 11/21/2019 and 05/30/2019. FINDINGS: Numerous foci of increased radiotracer uptake identified in the calvarium, left humerus, r ight clavicle, bilateral ribs, cervical spine, thoracic spine, lumbar spine, bony pelvis and proximal femurs which are not significant changed compared to 11/19/2020. There is photopenia noted in the kne es bilaterally patible with presence of bilateral knee arthroplasty prostheses. No abnormal soft tiss ue uptake. Increased radiotracer uptake identified in the right kidney compatible with hydronephrosis . IMPRESSION: Extensive osseous metastatic disease not significantly changed compared to 11/27/2020. No new osseous metastatic lesions are identified. Reviewed by: Coty Chavez MD, PhD on 04/21/2021 4:21 PM PST Approved by: Coty Chavez MD, PhD on 04/21/2021 4:21 PM PST Station ID: [id number]
== END 2021-04-21 09:27 | disposition home or self-care (01) ==
LOC: DI 09:26
PROVIDERS: ATTEND Internal Medicine Hematology & Oncology
DX: C50.419 Malignant neoplasm of upper-outer quadrant of unspecified female breast (principal); C79.51 Secondary malignant neoplasm of bone
CPT/HCPCS: 78306

== ENCOUNTER 2021-05-12 05:10 | Outpatient (CLI) | payer MEDICARE, OTHER | END 2021-05-12 05:11 | disposition critical access hospital (66) | LOC: EMS 05:10 | DX: R41.0 Disorientation, unspecified (principal); R11.0 Nausea | CPT/HCPCS: A0425; A0427 ==

== ENCOUNTER 2021-05-12 05:21 | Emergency (ER) | payer MEDICARE, OTHER ==
--- NOTE | 2021-05-12 05:33 | ED Physician Documentation ---
History of Present Illness - Stated complaint Stated Complaint: DEC APPETITE, NAUSEA, BREAST CA - Additonal information Additional information: Patient is 85-year-old female presenting to the emergency department with generalized weakness and decreased p.o. intake. 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 The patient reports that she has had decreased appetite Associated nausea for several months that has been getting progressively worse. Denies any new or worsening pain, fever, chills, shortness of breath Review of Systems Ten Systems: 10 systems reviewed and negative Constitutional: reports: Fatigue, Weight Loss. denies: Fever Eyes: denies: Loss of vision Ears: denies: Loss of hearing Nose: denies: Rhinorrhea / runny nose Throat: denies: Dental pain / toothache Cardiac: denies: Chest pain / pressure Respiratory: denies: Dyspnea GI: reports: Nausea, Vomiting. denies: Abdominal Pain : denies: Dysuria Skin: denies: Rash Musculoskeletal: denies: Neck pain Neurologic: reports: Generalized weakness. 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 Musculoskeletal: Rheumatoid arthritis - Past Surgical History Past Surgical History: Yes General: Cholecystectomy Ortho: Knee replacement /JUICE MIXER: Hysterectomy, Mastectomy - Present Medications Home Medications: Ambulatory Orders Medication Instructions Recorded Confirmed Acetaminophen [Tylenol] 325 mg ORAL BID PRN 09/01/12 09/10/20 Calcium Carbonate [Calcium] 600 mg ORAL BID 09/01/12 09/10/20 Celecoxib [Celebrex] 200 mg PO DAILY 09/01/12 09/10/20 InFLIXimab [Remicade] 600 mg IM/IV MAINTENANCE.IV 09/01/12 09/10/20 Leflunomide [Arava] 20 mg PO DAILY 09/01/12 09/10/20 Multivitamin [Multivitamins] 1 each PO DAILY 09/01/12 09/10/20 [place]-3 Fatty Acids/Fish Oil 2 each PO DAILY 09/01/12 09/10/20 [[place] 3 1,000 mg Softgel] Pantoprazole Sodium 40 mg PO DAILY 09/01/12 09/10/20 Sennosides/Docusate Sodium [Senna 1 each PO DAILY PRN 09/01/12 09/10/20 Plus Tablet] Loratadine [Claritin] 10 mg PO DAILY 08/02/14 09/10/20 Cholecalciferol (Vitamin D3) 5,000 unit PO DAILY 06/18/15 09/10/20 [Vitamin D3] Fenofibric Acid (Choline) 45 mg PO DAILY 06/18/15 09/10/20 [Trilipix] HYDROcod/ACETAM 5/325 [Vicodin 1 - 2 ea PO Q4H PRN 08/01/15 09/10/20 5/325] Albuterol Sulfate [Proair Hfa 4 puffs INH DAILY 07/28/17 09/10/20 Inhaler] Fluticasone [Flonase] 1 spray DAILY 09/20/20 09/20/20 Furosemide [Lasix] 20 mg DAILY 09/20/20 09/20/20 Zoledronic Acid 4 mg/100 ml 09/20/20 09/20/20 [Zometa 4 mg/100 ml] inFLIXimab [Remicade] 200 mg IV ONCE 09/20/20 09/20/20 - Allergies Allergies/Adverse Reactions: Allergies Allergy/AdvReac Type Severity Reaction Status Date / Time pollen extracts Allergy Mild Respiratory Verified 11/05/20 11:10 - Social History Does the pt smoke?: No Smoking Status: Never smoker Does the pt drink ETOH?: Yes Does the pt have substance abuse?: No - Immunizations Immunizations are current?: Yes PD ED PE NORMAL - Vitals Vital signs reviewed: Yes - General General: Alert and oriented X 3, Other (Patient toxic in appearance.) - HEENT HEENT: Atraumatic, PERRL, EOMI, Ears normal. No: Moist mucous membranes - Neck Neck: Supple, no meningeal sign, No bony TTP - Cardiac Cardiac: RRR, No gallop - Respiratory Respiratory: No respiratory distress, Clear bilaterally - Abdomen Abdomen: Normal bowel sounds, Non tender - Female Female : Deferred - Rectal Rectal: Deferred - Derm Derm: Other (Pale dry skin) - Extremities Extremities: No deformity - Neuro Neuro: Alert and oriented X 3 Results - Vitals Vitals: Vital Signs - 24 hr 05/12/21 05:28 Temperature 37.0 C Heart Rate 94 Respiratory 18 Rate Blood Pressure 128/75 O2 Saturation 95 Oxygen O2 Source Room air - EKG (time done) 0552 Rate: Rate (enter#) (91) Rhythm: NSR [place]: LAD Intervals: Normal IN, RBBB Ischemia: Normal ST segments, T wave inversion Compare to prior EKG: Changed from prior EKG (T wave inversions in precordial leads V2-V3 new in comparison to previous 06/10/2014.) - Labs Labs: Laboratory Tests 05/12/21 05/12/21 05/12/21 05:50 05:50 05:50 WBC 10.6 RBC 3.52 L Hgb 12.0 Hct 34.1 L MCV 96.9 MCH 34.1 H MCHC 35.2 RDW 20.8 H Plt Count 148 MPV 9.2 Neut # (Auto) Not Reportable Lymph # (Auto) Not Reportable [facility] # (Auto) Not Reportable Eos # (Auto) Not Reportable Baso # (Auto) Not Reportable Absolute Nucleated RBC Not Reportable Total Counted 100 Band Neuts % (Manual) 6 Abnorm Lymph % (Manual) 0 Myelocytes % 1 H Nucleated RBC % Not Reportable Neutrophils # (Manual) 8.2 H Lymphocytes # (Manual) 1.2 L Monocytes # (Manual) 1.1 H Eosinophils # (Manual) 0.1 Basophils # (Manual) 0.0 Nucleated RBCs 1 Differential Comment MANUAL DIFFERENTIAL Platelet Estimate NORMAL (130-450,000) RBC Morph Micro Appear 1+ TARGET CELLS PT 19.8 H INR 1.8 H Sodium 126 L Potassium 5.3 H Chloride 94 L Carbon Dioxide 20 L Anion Gap 12.0 BUN 30 H Creatinine 1.3 H Estimated GFR (MDRD) 39 L Glucose 76 Lactic Acid Calcium 10.0 Magnesium 1.5 L Total Bilirubin 3.4 H AST 240 H ALT 171 H Alkaline Phosphatase 197 H Troponin I High Sens Total Protein 7.1 Albumin 2.5 L Globulin 4.6 H Albumin/Globulin Ratio 0.5 L Lipase 40 TSH 05/12/21 05/12/21 05/12/21 05:50 05:50 05:50 WBC RBC Hgb Hct MCV MCH MCHC RDW Plt Count MPV Neut # (Auto) Lymph # (Auto) [facility] # (Auto) Eos # (Auto) Baso # (Auto) Absolute Nucleated RBC Total Counted Band Neuts % (Manual) Abnorm Lymph % (Manual) Myelocytes % Nucleated RBC % Neutrophils # (Manual) Lymphocytes # (Manual) Monocytes # (Manual) Eosinophils # (Manual) Basophils # (Manual) Nucleated RBCs Differential Comment Platelet Estimate RBC Morph Micro Appear PT INR Sodium Potassium Chloride Carbon Dioxide Anion Gap BUN Creatinine Estimated GFR (MDRD) Glucose Lactic Acid 2.0 Calcium Magnesium Total Bilirubin AST ALT Alkaline Phosphatase Troponin I High Sens 26.9 H* Total Protein Albumin Globulin Albumin/Globulin Ratio Lipase TSH 6.04 H PD MEDICAL DECISION MAKING - ED course Complexity details: reviewed old records, reviewed results, re-evaluated patient ED course: Patient is 85-year-old female with known history of stage IV breast carcinoma with metastasis to bone presenting to the emergency department for progressively worsening nausea, vomiting, anorexia, generalized weakness. Patient afebrile, hemodynamically stable on arrival to the emergency department. Had a generally toxic appearance and clinically looked dehydrated on arrival. Abdominal exam was nontender without guarding, rebound or rigidity. EKG as outlined above redemonstrated a stable right bundle branch block however in comparison to most recent from -12/2014 there appear to be new T wave abnormalities in the precordial leads V2-V3.Comprehensive labs were ordered which demonstrated a chronic hyponatremia, a very mild hyperkalemia as well as a mild elevation in high-sensitivity troponin. I did order for Zofran and IV hydration. At this time I will be signing the patient out to the oncoming physician, please see their documentation for further detail. Departure - Departure Clinical Impression: General weakness, Elevated troponin, Nausea & vomiting, Metastatic breast cancer
[2021-05-12] MEDS ORDERED: SODIUM CHLORIDE 0.9% 1,000 ML IV STA ×2 (05:36→12:23)
[2021-05-12] MEDS ORDERED: ONDANSETRON 4 MG/2 ML VIAL IVP STA (05:36)
[2021-05-12 06:00] LABS: BASOPHILS % (AUTO) 0.9 %; EOSINOPHILS % (AUTO) 0.9 %; HCT - HEMATOCRIT 34.1 % (37.0-47.0); LYMPHOCYTES % (AUTO) 14.2 %; MEAN CORPUSCULAR HEMOGLOBIN 34.1 pg (27.0-31.0); MEAN CORPUSCULAR HGB CONC 35.2 g/dL (32.0-36.0); MEAN CORPUSCULAR VOLUME 96.9 fL (81.0-99.0); MEAN PLATELET VOLUME 9.2 fL (7.9-10.8); MONOCYTES % (AUTO) 8.7 %; NEUTROPHILS % (AUTO) 70.5 %; PLT - PLATELET COUNT 148 10^3/uL (130-450); RED BLOOD COUNT 3.52 10^6/uL (4.20-5.40); RED CELL DISTRIBUTION WIDTH 20.8 % (12.0-15.0); WHITE BLOOD COUNT 10.6 x10^3/uL (4.8-10.8)
[2021-05-12 06:03] LABS: ABNORMAL LYMPHS % (MANUAL) 0 %
[2021-05-12 06:24] LABS: ALBUMIN 2.5 g/dL (3.2-5.5); ALBUMIN/GLOBULIN RATIO 0.5 (1.0-2.2); BILIRUBIN,TOTAL 3.4 mg/dL (0.2-1.0); CREATININE 1.3 mg/dL (0.4-1.0); MAGNESIUM 1.5 mg/dL (1.7-2.8); POTASSIUM 5.3 mmol/L (3.5-5.0); TOTAL PROTEIN 7.1 g/dL (6.7-8.2)
[2021-05-12 06:34] LABS: INR 1.8 (0.8-1.2); PT - PROTHROMBIN TIME 19.8 secs (9.9-12.6)
[2021-05-12 06:36] LABS: BAND NEUTROPHILS % (MANUAL) 6 %; EOSINOPHILS # (MANUAL) 0.1 10^3/uL (0-0.7); LYMPHOCYTES # (MANUAL) 1.2 10^3/uL (1.5-3.5); LYMPHOCYTES % (MANUAL) 11 %; MONOCYTES # (MANUAL) 1.1 10^3/uL (0.0-1.0); MYELOCYTES % (MANUAL) 1 %; NEUTROPHILS # (MANUAL) 8.2 10^3/uL (1.5-6.6); NUCLEATED RBC (MANUAL) 1 %
[2021-05-12 06:37] LABS: DIFFERENTIAL COMMENT MANUAL DIFFERENTIAL; PLATELET ESTIMATE, MANUAL NORMAL (130-450,000) (NORMAL)
[2021-05-12 06:58] LABS: B. PARAPERTUSSIS- RESP PCR PAN NOT DETECTED; B. PERTUSSIS- RESP PCR PANEL NOT DETECTED; C. PNEUMONIAE- RESP PCR PANEL NOT DETECTED; CORONAVIRUS 229E-RESP PCR NOT DETECTED; CORONAVIRUS HKU1-RESP PCR NOT DETECTED; CORONAVIRUS NL63-RESP PCR NOT DETECTED; CORONAVIRUS OC43-RESP PCR NOT DETECTED; HUMAN METAPNEUMOVIRUS NOT DETECTED; INFLUENZA A- RESP PCR PANEL NOT DETECTED; INFLUENZA B - RESP PCR PANEL NOT DETECTED; M. PNEUMONIAE- RESP PCR PANEL NOT DETECTED; PARAINFLUENZA VIRUS 1 NOT DETECTED; PARAINFLUENZA VIRUS 2 NOT DETECTED; PARAINFLUENZA VIRUS 3 NOT DETECTED; PARAINFLUENZA VIRUS 4 NOT DETECTED; RHINOVIRUS/ENTEROVIRUS NOT DETECTED; RSV- RESP PCR PANEL NOT DETECTED; SARS-CoV-2 -RESP PCR PANEL NOT DETECTED
[2021-05-12 07:24] LABS: GLUCOSE, URINE (UA) NEGATIVE (NEGATIVE); KETONES,URINE (UA) TRACE mg/dL (NEGATIVE); LEUKOCYTE ESTERASE, URINE NEGATIVE (NEGATIVE); NITRITE,URINE NEGATIVE (NEGATIVE); OCCULT BLOOD,URINE NEGATIVE (NEGATIVE); PROTEIN,URINE NEGATIVE (NEGATIVE); UROBILINOGEN,URINE 1 (NORMAL) E.U./dL (NORMAL)
[2021-05-12 07:27] LABS: BILIRUBIN,URINE SMALL (NEGATIVE); CLARITY,URINE CLEAR (CLEAR); ICTOTEST,URINE POSITIVE
[2021-05-12] MEDS ORDERED: iohexoL-300 100 ML VIAL ONE (08:05)
[2021-05-12] MEDS ORDERED: iohexoL-300 100 ML VIAL IVP ONE (08:21)
--- NOTE | 2021-05-12 09:44 | CT Report ---
PROCEDURE: Abdomen/Pelvis W INDICATIONS: weight loss CONTRAST: IV CONTRAST: Optiray 320 ml: 100 PO CONTRAST: *NO PO CONTRAST TECHNIQUE: After the administration of IV and oral contrast, 5 mm thick sections acquired from the diaphragms to the symphysis. 5 mm thick coronal and sagittal reformats were acquired. For radiation dose reducti on, the following was used: automated exposure control, adjustment of mA and/or kV according to lashawn ent size. COMPARISON: 08/21/2018, bone scan dated 04/21/2021 and 11/27/2020 FINDINGS: Image quality: Excellent. ABDOMEN: Lung bases: Bibasilar pleural effusions. Mild cardiomegaly. Aortic valvular and coronary artery calci fication. Solid organs: Chronic right-sided hydronephrosis without hydroureter. Nonobstructing 4 mm right lowe r pole intrarenal calcification. Mild left-sided hydronephrosis. No hydroureter or urinary calcificat ions in the left. The gallbladder is surgically absent. The liver, adrenal glands, spleen appear normal. The pancreas i s chronically diminutive. No ductal dilatation. Peritoneum and bowel: There is a small amount of nonspecific perihepatic and perisplenic ascites. Inc reased quantity of solid rectal stool present. The rest of the bowel loops are relatively decompresse d. No bowel obstruction. The stomach is also decompressed. Nodes and vessels: The aorta is tortuous with moderate atherosclerotic calcification. The inferior ve na cava is extremely diminutive/decompressed. There is a retroaortic left renal vein. No bulky retrop eritoneal or mesenteric adenopathy. Miscellaneous: No ventral hernias. Mild to moderate subcutaneous edema diffusely. PELVIS: Genitourinary: Bladder wall thickness is normal. The uterus is surgically absent. No suspicious adn exal masses. Miscellaneous: No inguinal hernias or adenopathy. Bones: Extensive osseous metastases and several pathologic compression fractures superimposed on the reverse S scoliosis of the visible spine. IMPRESSION: 1. Decompressed IVC indicating dehydration/low volume status. 2. Trace nonspecific ascites and moderate anasarca suggesting hypoproteinemia/third spacing. 3. Bilateral pleural effusions, nonspecific. 4. Chronic right hydronephrosis and nonobstructing intrarenal calcification. This was present 11/28/19. 5. Known osseous metastatic disease. Reviewed by: Yoly Izaguirre MD on 05/12/2021 9:43 AM PST Approved by: Yoly Izaguirre MD on 05/12/2021 9:43 AM PST Station ID: [id number]
--- NOTE | 2021-05-12 11:44 | ED Physician Documentation ---
ED Addendum - Addendum Addendum: 05/12/21 11:43 85-year-old female with stage IV breast cancer is found to be dehydrated and she has pulled out her IV. The radiologist reports a spindly inferior vena cava on her CT scan consistent with dehydration and she has received 1 L of saline. I have gone in and reevaluated her inferior vena cava with the bedside ultrasound and find it to also be small with a caval diameter of 0.7 and complete collapse. Indicating a persistent significant deficit of 2 to 3 L. She is administered another liter of saline prior to discharge to home. 05/12/21 12:46 05/12/21 16:24
[2021-05-12 13:45] VITALS: BP 148/84
== END 2021-05-12 14:02 | disposition home or self-care (01) ==
LOC: EDUNIT# → ED 05:21
DX: E86.0 Dehydration (principal); E87.1 Hypo-osmolality and hyponatremia; E87.5 Hyperkalemia; R53.1 Weakness; R79.89 Other specified abnormal findings of blood chemistry; R11.2 Nausea with vomiting, unspecified; Z20.822 Contact with and (suspected) exposure to COVID-19; C79.51 Secondary malignant neoplasm of bone; Z85.3 Personal history of malignant neoplasm of breast; I45.10 Unspecified right bundle-branch block; I10 Essential (primary) hypertension; M06.9 Rheumatoid arthritis, unspecified
CPT/HCPCS: 36415; 74177; 80053; 81003; 83605; 83690; 83735; 84443; 84484; 85025; 85610; 87631; 93005; 96361; 96374; 99283; 99284; Q9967; 0202U; 81001; 87086

== ENCOUNTER 2021-05-15 12:46 | Inpatient (IN) | payer MEDICARE, OTHER ==
[2021-05-15 13:08] LABS: EOSINOPHILS % (AUTO) 0.2 %; HCT - HEMATOCRIT 37.8 % (37.0-47.0); HGB - HEMOGLOBIN 13.5 g/dL (12.0-16.0); LYMPHOCYTES % (AUTO) 14.9 %; MEAN CORPUSCULAR HEMOGLOBIN 33.9 pg (27.0-31.0); MEAN CORPUSCULAR HGB CONC 35.7 g/dL (32.0-36.0); MEAN PLATELET VOLUME 8.6 fL (7.9-10.8); MONOCYTES % (AUTO) 6.3 %; NEUTROPHILS % (AUTO) 69.4 %; PLT - PLATELET COUNT 143 10^3/uL (130-450); RED BLOOD COUNT 3.98 10^6/uL (4.20-5.40); RED CELL DISTRIBUTION WIDTH 22.5 % (12.0-15.0); WHITE BLOOD COUNT 12.5 x10^3/uL (4.8-10.8)
[2021-05-15 13:11] LABS: SLIDE REVIEW? Indicated
[2021-05-15 13:26] LABS: ABNORMAL LYMPHS % (MANUAL) 0 %
[2021-05-15 13:29] LABS: BAND NEUTROPHILS % (MANUAL) 8 %; LYMPHOCYTES # (MANUAL) 1.5 10^3/uL (1.5-3.5); LYMPHOCYTES % (MANUAL) 4 %; METAMYELOCYTES % (MANUAL) 2 %; MONOCYTES # (MANUAL) 0.9 10^3/uL (0.0-1.0); MYELOCYTES % (MANUAL) 2 %; NEUTROPHILS # (MANUAL) 9.6 10^3/uL (1.5-6.6); NUCLEATED RBC (MANUAL) 1 %; REACTIVE LYMPHS % (MANUAL) 8 %
[2021-05-15 13:30] LABS: RBC MORPHOLOGY (MULTIPLE) 4+ ANISOCYTOSIS (NORMAL)
[2021-05-15] MEDS ORDERED: SODIUM CHLORIDE 0.9% 1,000 ML IV STA (13:53)
[2021-05-15 14:07] LABS: ALBUMIN 2.5 g/dL (3.2-5.5); ALBUMIN/GLOBULIN RATIO 0.5 (1.0-2.2); BILIRUBIN,TOTAL 5.2 mg/dL (0.2-1.0); CALCIUM 10.3 mg/dL (8.5-10.3); CREATININE 3.1 mg/dL (0.4-1.0); TOTAL PROTEIN 7.6 g/dL (6.7-8.2)
[2021-05-15 14:10] LABS: POTASSIUM 6.2 mmol/L (3.5-5.0)
[2021-05-15] MEDS ORDERED: DEXTROSE 50% ABBOJECT 25 GM/50 ML SYRINGE ONE (14:26)
--- NOTE | 2021-05-15 14:27 | ED Physician Documentation ---
History of Present Illness - Stated complaint Stated Complaint: N/V,WEAK - Chief complaint Chief Complaint: Neuro - History obtained from History obtained from: Family - Additonal information Additional information: Patient is brought to the emergency department by daughter for chief complaint of altered mental status and dehydration. The patient normally lives at home with her daughter and has a history of metastatic breast cancer for which she sees oncology. She has until recently been on some sort of chemotherapeutic agent, but is currently not taking anything. She is not on hospice. Daughter states the patient normally ambulates with a walker, but has been becoming increasingly nauseated over the last month and a half and over the last week, has not wanted to eat anything. She is also not wanted to drink anything, and has been increasingly dehydrated. The patient was seen for the same on Wednesday of this week, which was 3 days ago, and at that time was given 2 L of normal saline. Her oncologist wants her to get a "liver scan" according to the daughter, to see if the patient has any liver lesions that may be causing her ongoing nausea. The patient has been on Zofran at home, And well she has not really had any vomiting, she has not had an appetite either. Daughter states that she thinks the patient just needs fluid and nutrition and she will be back to her normal self. The daughter states they do not have a POLST form, though the patient has sometimes stated that she just wants to be "let go". However at other times, the daughter thinks that the patient may want resuscitation. She is not really sure what the Patient feels at this time, as the patient has been less responsive today. Additionally, the patient was taken to her primary doctor's office where she did not see her primary, but somebody else. The doctor or provider they saw in the office told them to bring the patient to the ER, but before she left, gave IM doses of Solu-Medrol and Phenergan. After 25 mg of Phenergan, the patient became somnolent, and is now unable to offer any information. 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 Musculoskeletal: Rheumatoid arthritis - Past Surgical History Past Surgical History: Yes General: Cholecystectomy Ortho: Knee replacement /SUPERVISOR DRYING AND SOFTENING: Hysterectomy, Mastectomy - Present Medications Home Medications: Ambulatory Orders Medication Instructions Recorded Confirmed Acetaminophen [Tylenol] 325 mg ORAL BID PRN 09/01/12 05/16/21 Calcium Carbonate [Calcium] 600 mg ORAL BID 09/01/12 05/16/21 Celecoxib [Celebrex] 200 mg PO DAILY 09/01/12 05/16/21 Multivitamin [Multivitamins] 1 each PO DAILY 09/01/12 05/16/21 [place]-3 Fatty Acids/Fish Oil 2 each PO DAILY 09/01/12 05/16/21 [[place] 3 1,000 mg Softgel] Pantoprazole Sodium 40 mg PO DAILY 09/01/12 05/16/21 Sennosides/Docusate Sodium [Senna 1 each PO DAILY PRN 09/01/12 05/16/21 Plus Tablet] Loratadine [Claritin] 10 mg PO DAILY 08/02/14 05/16/21 Cholecalciferol (Vitamin D3) 5,000 unit PO DAILY 06/18/15 05/16/21 [Vitamin D3] Fenofibric Acid (Choline) 45 mg PO DAILY 06/18/15 05/16/21 [Trilipix] HYDROcod/ACETAM 5/325 [Vicodin 1 - 2 ea PO Q4H PRN 08/01/15 05/16/21 5/325] Albuterol Sulfate [Proair Hfa 2 puffs INH BID 07/28/17 05/16/21 Inhaler] Fluticasone [Flonase] 1 spray [place] DAILY 09/20/20 05/16/21 Furosemide [Lasix] 20 mg PO DAILY 09/20/20 05/16/21 Zoledronic Acid 4 mg/100 ml 4 mg IV ONCE 09/20/20 05/16/21 [Zometa 4 mg/100 ml] inFLIXimab [Remicade] 400 mg IV ONCE 09/20/20 05/16/21 Alpelisib [Piqray] 200 mg PO QDAC 05/16/21 05/16/21 Fulvestrant [Faslodex] 500 mg IM ONCE 05/16/21 05/16/21 Olmesartan Medoxomil [Benicar] 20 mg PO DAILY 05/16/21 05/16/21 Ondansetron [Ondansetron Odt] 8 mg PO TID PRN 05/16/21 05/16/21 Palbociclib [Ibrance] 100 mg PO DAILY 05/16/21 05/16/21 - Allergies Allergies/Adverse Reactions: Allergies Allergy/AdvReac Type Severity Reaction Status Date / Time pollen extracts Allergy Mild Respiratory Verified 05/15/21 13:04 - Social History Does the pt smoke?: No Smoking Status: Never smoker Does the pt drink ETOH?: Yes Does the pt have substance abuse?: No - Immunizations Immunizations are current?: Yes - POLST Patient has POLST: No PD ED PE NORMAL - Vitals Vital signs reviewed: Yes - General General: No acute distress, Other (The patient is somnolent, and does not answer any questions. She is unable to be aroused other than briefly opening her eyes to voice.) - HEENT HEENT: Atraumatic, PERRL, EOMI, Moist mucous membranes - Cardiac Cardiac: RRR, No murmur, Strong equal pulses - Respiratory Respiratory: No respiratory distress, Clear bilaterally - Abdomen Abdomen: Soft, Non tender, Non distended - Derm Derm: Normal color, Warm and dry, No rash - Extremities Extremities: No deformity, Other (Marked edema bilateral lower extremities, symmetrical, pitting) - Neuro Neuro: Other (Opens eyes to voice and shaking her shoulder, but is heavily drowsy and immediately becomes somnolent again.) - Psych Psych: Normal mood, Normal affect Results - Vitals Vitals: Oxygen O2 Source Room air - Labs Labs: Microbiology 05/15/21 15:21 Urine Culture - Final Urine,Catheterized No growth Laboratory Tests 05/15/21 05/15/21 05/15/21 13:00 13:43 15:18 WBC 12.5 H RBC 3.98 L Hgb 13.5 Hct 37.8 MCV 95.0 MCH 33.9 H MCHC 35.7 RDW 22.5 H Plt Count 143 MPV 8.6 Neut # (Auto) Not Reportable Lymph # (Auto) Not Reportable [place] # (Auto) Not Reportable Eos # (Auto) Not Reportable Baso # (Auto) Not Reportable Absolute Nucleated RBC Not Reportable Total Counted 100 Band Neuts % (Manual) 8 Reactive Lymphs % (Man) 8 Abnorm Lymph % (Manual) 0 Metamyelocytes % 2 H Myelocytes % 2 H Nucleated RBC % Not Reportable Neutrophils # (Manual) 9.6 H Lymphocytes # (Manual) 1.5 Monocytes # (Manual) 0.9 Eosinophils # (Manual) 0.0 Basophils # (Manual) 0.0 Nucleated RBCs 1 Manual Slide Review Indicated RBC Morph Micro Appear 4+ ANISOCYTOSIS Sodium 125 L Potassium 6.2 H* Chloride 95 L Carbon Dioxide 15 L Anion Gap 15.0 H BUN 49 H Creatinine 3.1 H Estimated GFR (MDRD) 14 L Glucose 41 L* POC Whole Bld Glucose 125 H Calcium 10.3 Total Bilirubin 5.2 H AST 398 H ALT 428 H Alkaline Phosphatase 283 H Total Protein 7.6 Albumin 2.5 L Globulin 5.1 H Albumin/Globulin Ratio 0.5 L Lipase 43 Urine Color Urine Clarity Urine pH Ur Specific [place] Urine Protein Urine Glucose (UA) Urine Ketones Urine Occult Blood Urine Nitrite Urine Bilirubin Urine Urobilinogen Ur Leukocyte Esterase Urine RBC Urine WBC Ur Squamous Epith Cells Urine Bacteria Ur Microscopic Review Urine Culture Comments 05/15/21 15:21 WBC RBC Hgb Hct MCV MCH MCHC RDW Plt Count MPV Neut # (Auto) Lymph # (Auto) [place] # (Auto) Eos # (Auto) Baso # (Auto) Absolute Nucleated RBC Total Counted Band Neuts % (Manual) Reactive Lymphs % (Man) Abnorm Lymph % (Manual) Metamyelocytes % Myelocytes % Nucleated RBC % Neutrophils # (Manual) Lymphocytes # (Manual) Monocytes # (Manual) Eosinophils # (Manual) Basophils # (Manual) Nucleated RBCs Manual Slide Review RBC Morph Micro Appear Sodium Potassium Chloride Carbon Dioxide Anion Gap BUN Creatinine Estimated GFR (MDRD) Glucose POC Whole Bld Glucose Calcium Total Bilirubin AST ALT Alkaline Phosphatase Total Protein Albumin Globulin Albumin/Globulin Ratio Lipase Urine Color DARK YELLOW Urine Clarity CLEAR Urine pH 5.0 Ur Specific [place] 1.025 Urine Protein NEGATIVE Urine Glucose (UA) NEGATIVE Urine Ketones NEGATIVE Urine Occult Blood NEGATIVE Urine Nitrite POSITIVE H Urine Bilirubin NEGATIVE Urine Urobilinogen 1 (NORMAL) Ur Leukocyte Esterase NEGATIVE Urine RBC 0-5 Urine WBC 0-3 Ur Squamous Epith Cells RARE Squamous Urine Bacteria Rare Ur Microscopic Review INDICATED Urine Culture Comments INDICATED PD MEDICAL DECISION MAKING - ED course Complexity details: reviewed results, re-evaluated patient, considered differential, d/w family ED course: The pt had been given Phenergan in clinic, prior to arrival in the ED, and was obtunded upon arrival. She did not appear well, and I discussed code status with daughter, who was uncertain at the time of our discussion what the pt wanted, despite her very advanced age and diagnosis with poor prognosis at baseline. She did express interest in Hospice, however. I worked the pt up with labs, and found that she was quite dehydrated, with a creatinine that had more than doubled since her last visit. Her potassiium was also over 6, up from 3.7, but without significant EKG changes. Pt was hypoglycemic with a blood sugar of 41, and was given an amp of D-50, without improvement in mental status. I reviewed her results from her last visit, including CT scan, which did not show distinct mets intraabdominally. She was also treated with IV fluids. I spoke with Dr. Zavala, who agreed to admit the pt to his service. Departure - Departure Disposition: 66 [facility] DC/Xfer Clinical Impression: Dehydration, Hyperkalemia Altered mental status Qualifiers: Altered mental status type: delirium Qualified Code(s): R41.0 - Disorientation, unspecified Condition: Serious Discharge Date/Time: 05/15/21 17:09
[2021-05-15] MEDS ORDERED: CALCIUM GLUCONATE 1,000 MG in SODIUM CHLORIDE 0.9% 50 ML IV STA (15:27)
[2021-05-15] MEDS ORDERED: DEXTROSE 50% ABBOJECT 25 GM/50 ML SYRINGE IVP STA (15:35)
[2021-05-15 15:44] LABS: GLUCOSE, URINE (UA) NEGATIVE (NEGATIVE); KETONES,URINE (UA) NEGATIVE (NEGATIVE); LEUKOCYTE ESTERASE, URINE NEGATIVE (NEGATIVE); NITRITE,URINE POSITIVE (NEGATIVE); OCCULT BLOOD,URINE NEGATIVE (NEGATIVE); PROTEIN,URINE NEGATIVE (NEGATIVE); UROBILINOGEN,URINE 1 (NORMAL) E.U./dL (NORMAL)
[2021-05-15] MEDS ORDERED: CALCIUM GLUCONATE IN NS 0.9% 1,000 MG/50 ML BAG IV ONE (16:00)
[2021-05-15 16:07] LABS: BILIRUBIN,URINE NEGATIVE (NEGATIVE); CLARITY,URINE CLEAR (CLEAR); ICTOTEST,URINE NEGATIVE
[2021-05-15 16:08] LABS: BACTERIA,URINE Rare /HPF (None Seen); RBC,URINE 0-5 /HPF (0-5); SQUAMOUS EPITHELIAL CELL,UR RARE Squamous (<= Few); WBC,URINE 0-3 /HPF (0-5)
[2021-05-15] MEDS ORDERED: ONDANSETRON 4 MG/2 ML VIAL IVP PRN (16:11)
[2021-05-15] MEDS ORDERED: SODIUM CHLORIDE FLUSH 0.9% 10 ML SYRINGE IVP PRN (16:11)
[2021-05-15] MEDS ORDERED: MORPHINE 2 MG/ML CARPUJECT IVP PRN (16:11)
[2021-05-15] MEDS ORDERED: LORazepam 2 MG/ML VIAL IVP PRN (16:17)
[2021-05-15] MEDS ORDERED: GLYCOPYRROLATE 1 MG/5 ML VIAL SUBQ PRN (16:17)
--- NOTE | 2021-05-15 16:19 | HISTORY & PHYSICAL EXAMINATION ---
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 She sees Dr. Kathleen Gee at the [facility]. She was recently taken off Ibrance in April 2021 and had been receiving Zom eta infusions every 3 months. The patient has been experiencing nausea and decreased appetite for the past week. She was seen in the ED on Wednesday05/12/21 for dehydration. At that time her creatinine was 1.3. She was given 2L IV hydration and discharged home. She was seen at her primary care physician's office today where she was administered a dose of Solu-Medrol IM and Phenergan 25 mg and advised to go to the emergency department for further evaluation. Upon arrival in the ED the patient was somnolent. Work-up in the ED included a BMP which showed a potassium of 6.2 and creatinine of 3. The patient was given a dose of calcium gluconate 1 g. She was presented for admission for further management. Upon presentation to bedside the patient appears very pale/ashen. She has a slight grimace on her face suggesting discomfort. She minimally arouses to verbal or tactile stimuli. She is unable to follow commands. On auscultation of her lungs crackles appreciated. She has 3+ lower extremity edema as well. She is mildly tachypneic with respiratory rate occasionally as high as 30s. History - Past Medical History Cardiovascular: reports: Hypertension GI: reports: GERD [employer] UN[employer]ER: reports: Breast cancer Musculoskeletal: reports: Rheumatoid arthritis MRSA Hx?: No Other Past Medical History: Breast cancer with metastasis to bone - Past Surgical History General: reports: Cholecystectomy Ortho: reports: Knee replacement /SCRE[employer] UNLOADER: reports: Hysterectomy, Mastectomy - Family & Social History Family History Comment/Other: Family history is limited due to patient's current clinical condition with somnolence/altered mental status. Social History Notes: She lives at home with her daughter. - POLST Patient has POLST: No POLST Status: DNR Meds/Allgy - Home Medications Home Medications: Ambulatory Orders Medication Instructions Recorded Confirmed Acetaminophen [Tylenol] 325 mg ORAL BID PRN 09/01/12 09/10/20 Calcium Carbonate [Calcium] 600 mg ORAL BID 09/01/12 09/10/20 Celecoxib [Celebrex] 200 mg PO DAILY 09/01/12 09/10/20 InFLIXimab [Remicade] 600 mg IM/IV MAINTENANCE.IV 09/01/12 09/10/20 Leflunomide [Arava] 20 mg PO DAILY 09/01/12 09/10/20 Multivitamin [Multivitamins] 1 each PO DAILY 09/01/12 09/10/20 Woodruff-3 Fatty Acids/Fish Oil 2 each PO DAILY 09/01/12 09/10/20 [Woodruff 3 1,000 mg Softgel] Pantoprazole Sodium 40 mg PO DAILY 09/01/12 09/10/20 Sennosides/Docusate Sodium [Senna 1 each PO DAILY PRN 09/01/12 09/10/20 Plus Tablet] Loratadine [Claritin] 10 mg PO DAILY 08/02/14 09/10/20 Cholecalciferol (Vitamin D3) 5,000 unit PO DAILY 06/18/15 09/10/20 [Vitamin D3] Fenofibric Acid (Choline) 45 mg PO DAILY 06/18/15 09/10/20 [Trilipix] HYDROcod/ACETAM 5/325 [Vicodin 1 - 2 ea PO Q4H PRN 08/01/15 09/10/20 5/325] Albuterol Sulfate [Proair Hfa 4 puffs INH DAILY 07/28/17 09/10/20 Inhaler] Fluticasone [Flonase] 1 spray DAILY 09/20/20 09/20/20 Furosemide [Lasix] 20 mg DAILY 09/20/20 09/20/20 Zoledronic Acid 4 mg/100 ml 09/20/20 09/20/20 [Zometa 4 mg/100 ml] inFLIXimab [Remicade] 200 mg IV ONCE 09/20/20 09/20/20 - Allergies Allergies/Adverse Reactions: Allergies Allergy/AdvReac Type Severity Reaction Status Date / Time pollen extracts Allergy Mild Respiratory Verified 05/15/21 13:04 Review of Systems - Constitutional Constitutional: reports: Weakness, Poor appetite. denies: Fever, Chills - Eyes Eyes: denies: Pain - Ears, Nose & Throat Ears, Nose & Throat: denies: Sore throat, Hoarseness - Cardiovascular Cariovascular: reports: Edema. denies: Irregular heart rate, Palpitations, Chest pain, Lightheadedness, Syncope - Respiratory Respiratory: denies: Sputum production, Wheezing, SOB at rest, SOB with exertion - Gastrointestinal Gastrointestinal: reports: Abdominal pain, Nausea, Vomiting - Genitourinary Genitourinary: denies: Frequency, Hematuria - Musculoskeletal Musculoskeletal: reports: Back pain - Integumentary Integumentary: denies: Rash - Neurological Neurological: reports: General weakness - Psychiatric Psychiatric: denies: Depression, Anxiety - Endocrine Endocrine: denies: Polyuria, Polydypsia - Hematologic/Lymphatic Hematologic/Lymphatic: denies: Anemia, Bruising, Petechiae Prior Level of Functionality: Patient lives at home with her daughter. Over the past 2 weeks her physical condition has significantly deteriorated. She has not really been eating in the past week. She is very weak. Exam - Vital Signs Vital Signs: Vital Signs x48h Temp Pulse Resp BP Pulse Ox 05/15/21 15:26 36.4 C L 81 31 H 169/82 H 97 05/15/21 12:59 100 29 H 97/54 L 94 - Physical Exam General Appearance: positive: Moderate distress, Lethargic Eyes Bilateral: positive: EOMI ENT: positive: Dry mucous membranes Neck: positive: No JVD, Trachea midline Respiratory: positive: Other (Crackles in lung bases bilaterally, tachypnea) Cardiovascular: positive: Regular rate & rhythm, No murmur Abdomen: positive: Nml bowel sounds, No distention, Tenderness (mild) Back: positive: Nml inspection Skin: positive: Pallor Extremities: positive: Pedal edema (3+) Neurologic/Psychiatric: positive: Disoriented to place, Disoriented to time, Other (Somnolent) Conclusion/Plan - Problem List (1) Acute kidney failure Conclusion/Plan: Secondary to poor oral intake over the past week. Creatinine was 3.1, BUN 49 estimated GFR 14. Patient was given 1 L of normal saline in the ED. After discussion with the patient's daughter, she opted for hospice care. Thus no further treatment for acute kidney injury will be undertaken. (2) Dehydration Conclusion/Plan: Secondary to poor oral intake over the past week. Creatinine was 3.1, BUN 49 estimated GFR 14. Patient was given 1 L of normal saline in the ED. After discussion with the patient's daughter, she opted for hospice care. Thus no further treatment for acute kidney injury will be undertaken. (3) Altered mental status Conclusion/Plan: This is secondary to dehydration and medication administered. Patient was given 1 L of normal saline in the ED. Will hold off on any further IV administration since patient is going on hospice care Qualifiers: Altered mental status type: delirium Qualified Code(s): R41.0 - Disorientation, unspecified (4) Hyperkalemia Conclusion/Plan: Potassium was 6.2. Patient was given 1 g of calcium gluconate. After discussion with the patient's daughter, she opted for hospice care. There was no further treatment for hyperkalemia with administered. (5) Breast cancer metastasized to bone Conclusion/Plan: She sees Dr. Kathleen Gee at the [facility]. The patient was taken off Ibrance in April 2021. She is on Zometa infusions every 3 months. Was last seen by her oncologist on May 06, 2021. The plan had been to potentially receive Piqray athis week and Continue Faslodex monthly However initiation of Piqray Was dependent on liver findings on a CT scan that was to be done this week. If there were findings of visceral metastasis the plan had been to recommend hospice care. CT of the abdomen and pelvis done on 05/12/2021 showed extensive osseous metastasis and several pathologic compression fractures superimposed on the reverse S scoliosis of the visible spine. There was trace nonspecific ascites and moderate anasarca suggesting hypo proteinemia/third spacing. Bilateral pleural effusion, nonspecific. The patient has not been eating for the past week. Upon presentation at bedside she was very pale/ashen and minimally responsive to tactile or verbal stimuli. She was not able to follow commands or answer questions. Upon discussing with the patient's daughter highlighting how much more dehydrated she has become over 3 days of little/no oral intake (her creatinine went from 1.3-3), how pale/ashen she appeared and the discomfort she appeared to be in judging from the grimace on her face, I was concerned that the patient was likely not to last more than a week . After consideration the patient's daughter opted for comfort measures. I explained that with comfort measures our therapy would be directed at strictly comfort. We will administer something for pain, anxiety, increased secretions and or air hunger. She expressed understanding and was in agreement with the plan. Comfort measures were initiated. The daughter expressed that the patient had stated that she would not want to go through hospice at home. Rather she would prefer to be at a facility for respite while on hospice. Will consult hospice care on 05/16/2021. - Lab Results Fish Bones: 05/15/21 13:00 05/15/21 13:43 Core Measures - Anticipated LOS I expect patient to be DC'd or transferred within 96 hours.: Yes - DVT/VTE - Prophylaxis VTE/DVT Device ordered at admit?: Yes
[2021-05-15] MEDS ORDERED: ONDANSETRON 4 MG/2 ML VIAL IVP STA (16:22)
[2021-05-15 18:23] LABS: B. PARAPERTUSSIS- RESP PCR PAN NOT DETECTED; B. PERTUSSIS- RESP PCR PANEL NOT DETECTED; C. PNEUMONIAE- RESP PCR PANEL NOT DETECTED; CORONAVIRUS 229E-RESP PCR NOT DETECTED; CORONAVIRUS HKU1-RESP PCR NOT DETECTED; CORONAVIRUS NL63-RESP PCR NOT DETECTED; CORONAVIRUS OC43-RESP PCR NOT DETECTED; HUMAN METAPNEUMOVIRUS NOT DETECTED; INFLUENZA A- RESP PCR PANEL NOT DETECTED; INFLUENZA B - RESP PCR PANEL NOT DETECTED; M. PNEUMONIAE- RESP PCR PANEL NOT DETECTED; PARAINFLUENZA VIRUS 1 NOT DETECTED; PARAINFLUENZA VIRUS 2 NOT DETECTED; PARAINFLUENZA VIRUS 3 NOT DETECTED; PARAINFLUENZA VIRUS 4 NOT DETECTED; RHINOVIRUS/ENTEROVIRUS NOT DETECTED; RSV- RESP PCR PANEL NOT DETECTED; SARS-CoV-2 -RESP PCR PANEL NOT DETECTED
[2021-05-15] MEDS: SODIUM CHLORIDE FLUSH 0.9% 10 ML SYRINGE IVP SCH (20:04)
[2021-05-16] MEDS: SODIUM CHLORIDE FLUSH 0.9% 10 ML SYRINGE IVP SCH ×3 (01:15→18:01)
[2021-05-16 08:43] VITALS: BP 119/57
--- NOTE | 2021-05-16 12:29 | PROVIDER PROGRESS NOTE ---
Assessment/Plan - Problem List (1) Acute kidney failure Assessment/Plan: Secondary to poor oral intake over the past week. Creatinine was 3.1, BUN 49 estimated GFR 14. Patient was given 1 L of normal saline in the ED. After discussion with the patient's daughter, she opted for hospice care. Thus no further treatment for acute kidney injury will be undertaken. Hospice referral made 05/16/2021. Spoke with Dr. Cross of the hospice team who advised that the patient could be admitted to the hospitalist service today if there was appropriate disposition. Social work helping to facilitate the process of placement. Waiting to hear from [facility]. (2) Dehydration Conclusion/Plan: Secondary to poor oral intake over the past week. Creatinine was 3.1, BUN 49 estimated GFR 14. Patient was given 1 L of normal saline in the ED. After discussion with the patient's daughter, she opted for hospice care. Thus no further treatment for acute kidney injury will be undertaken. (3) Altered mental status Conclusion/Plan: This is secondary to dehydration and medication administered. Patient was given 1 L of normal saline in the ED. Will hold off on any further IV administration since patient is going on hospice care Qualifiers: Altered mental status type: delirium Qualified Code(s): R41.0 - Disorientation, unspecified (4) Hyperkalemia Conclusion/Plan: Potassium was 6.2. Patient was given 1 g of calcium gluconate. After discussion with the patient's daughter, she opted for hospice care. There was no further treatment for hyperkalemia with administered. (5) Breast cancer metastasized to bone Conclusion/Plan: She sees Dr. Kathleen Gee at the [facility]. The patient was taken off Ibrance in April 2021. She is on Zometa infusions every 3 months. Was last seen by her oncologist on May 06, 2021. The plan had been to potentially receive Piqray athis week and Continue Faslodex monthly However initiation of Piqray Was dependent on liver findings on a CT scan that was to be done this week. If there were findings of visceral metastasis the plan had been to recommend hospice care. CT of the abdomen and pelvis done on 05/12/2021 showed extensive osseous metastasis and several pathologic compression fractures superimposed on the reverse S scoliosis of the visible spine. There was trace nonspecific ascites and moderate anasarca suggesting hypoproteinemia/third spacing. Bilateral pleural effusion, nonspecific. The patient has not been eating for the past week. Upon presentation at bedside she was very pale/ashen and minimally responsive to tactile or verbal stimuli. She was not able to follow commands or answer questions. Upon discussing with the patient's daughter highlighting how much more dehydrated she has become over 3 days of little/no oral intake (her creatinine went from 1.3-3), how pale/ashen she appeared and the discomfort she appeared to be in judging from the grimace on her face, I was concerned that the patient was likely not to last more than a week . After consideration the patient's daughter opted for comfort measures. I explained that with comfort measures our therapy would be directed at strictly comfort. We will administer something for pain, anxiety, increased secretions and or air hunger. She expressed understanding and was in agreement with the plan. Comfort measures were initiated. The daughter expressed that the patient had stated that she would not want to go through hospice at home. Rather she would prefer to be at a facility for respite while on hospice. Hospice referral made 05/16/2021. Spoke with Dr. Cross of the hospice team who advised that the patient could be admitted to the hospitalist service today if there was appropriate disposition. Social work helping to facilitate the process of placement. Waiting to hear from [facility]. Pain management with morphine 2 mg IV every 2 hours as needed. Roxanol 10 mg every 6 hours scheduled. Ativan as needed. (3) Altered mental status Qualifiers: Altered mental status type: delirium Qualified Code(s): R41.0 - Disorientation, unspecified - Current Meds Current Meds: Current Medications Generic Name Dose Route Start Last Admin Trade Name Freq PRN Reason Stop Dose Admin Morphine Sulfate 2 mg 05/15/21 16:11 05/16/21 11:06 Morphine 2 Mg/Ml Carpuject IVP 2 mg Q2HR PRN Administration Pain 8 to 10 Sodium Chloride 10 ml 05/15/21 17:00 05/16/21 11:06 Sodium Chloride Flush 0.9% 10 Ml Syringe IVP 10 ml 0100,0900,1700 JOSÉ MIGUEL Administration - Lab Result Fish Bone Diagrams: 05/15/21 13:00 05/15/21 13:43 - Additional Planning My Orders: My Active Orders 05/15/21 16:11 Activity Orders [RC] Q2HR IO [RC] IOSHIFT Initiate Bowel Care Protocol [RC] .protocol Initiate Line Care Protocol [RC] QSHIFT Initiate Personal Care Protoco [RC] .protocol Oxygen Therapy [RC] .PRN Vital Signs [RC] 0800,1600,0000 Morphine Inj (Carpuject) [Morphine (Carpuject)] 2 mg IVP Q2HR PRN Ondansetron Inj [Zofran Inj] 4 mg IVP Q6HR PRN Sodium Chloride Flush 0.9% [Normal Saline Flush 0.9%] 10 ml IVP PRN PRN Code Status [OTHERS] Routine Condition of Patient [OTHERS] Routine DVT Prophylaxis [OTHERS] Routine 05/15/21 16:17 Comfort Care [RC] QSHIFT Glycopyrrolate [Robinul] 0.2 mg SUBQ Q4H PRN LORazepam INJ [Ativan Inj (Vial)] 1 mg IVP Q6H PRN 05/15/21 17:00 Sodium Chloride Flush 0.9% [Normal Saline Flush 0.9%] 10 ml IVP 0100,0900,1700 05/16/21 08:26 Hospice Referral for Post-Discharge Services [CONS] Routine 05/16/21 Lunch Clear Liquid Diet [DIET] 05/16/21 13:00 Morphine Oral Soln [Roxanol] 10 mg PO Q6HR Subjective - Subjective Patient Reports: Other (Minimal response to tactile/verbal stimuli. Opens her eyes but does not respond to questions asked. Appears to be in some amount of discomfort/pain.) Objective Vital Signs: Vital Signs - 24 hr 05/15/21 05/15/21 05/15/21 12:59 15:26 21:52 Temperature 36.4 C L 36.2 C L Heart Rate 100 81 Heart Rate [ 75 Monitoring electrodes] Respiratory 29 H 31 H 12 Rate Blood Pressure 97/54 L 169/82 H Blood Pressure [Left Brachial artery] O2 Saturation 94 97 86 L 05/16/21 08:00 Temperature 35.6 C L Heart Rate Heart Rate [ 62 Monitoring electrodes] Respiratory 18 Rate Blood Pressure Blood Pressure 119/57 L [Left Brachial artery] O2 Saturation 91 L Oxygen O2 Source Room air I&O (Last 24 Hrs): Intake and Output Totals x24h 05/14/21 05/15/21 05/16/21 23:59 23:59 23:59 Intake Total 1050 Output Total 60 75 Balance 990 -75 General: Other (Somnolent. Opens eyes to tactile stimuli but unable to respond to questions asked. Moderate pain) HEENT: PERRLA, EOMI Neck: Supple, No JVD Neuro: Other (Somnolent) Cardiovascular: Regular rate Respiratory: Other (Crackles on auscultation bilaterally) Abdomen: Soft, Other (Tender to palpation) Extremities: No clubbing, No cyanosis, Other (3+ lower extremity edema) Skin: No rashes, No breakdown, No significant lesion - Results Results: Laboratory Results WBC 12.5 x10^3/uL (4.8-10.8) H 05/15/21 13:00 RBC 3.98 10^6/uL (4.20-5.40) L 05/15/21 13:00 Hgb 13.5 g/dL (12.0-16.0) 05/15/21 13:00 Hct 37.8 % (37.0-47.0) 05/15/21 13:00 MCV 95.0 fL (81.0-99.0) 05/15/21 13:00 MCH 33.9 pg (27.0-31.0) H 05/15/21 13:00 MCHC 35.7 g/dL (32.0-36.0) 05/15/21 13:00 RDW 22.5 % (12.0-15.0) H 05/15/21 13:00 Plt Count 143 10^3/uL (130-450) 05/15/21 13:00 MPV 8.6 fL (7.9-10.8) 05/15/21 13:00 Neut # (Auto) Not Reportable 05/15/21 13:00 Lymph # (Auto) Not Reportable 05/15/21 13:00 [place] # (Auto) Not Reportable 05/15/21 13:00 Eos # (Auto) Not Reportable 05/15/21 13:00 Baso # (Auto) Not Reportable 05/15/21 13:00 Absolute Nucleated RBC Not Reportable 05/15/21 13:00 Total Counted 100 05/15/21 13:00 Band Neuts % (Manual) 8 % (0-10) 05/15/21 13:00 Reactive Lymphs % (Man) 8 % 05/15/21 13:00 Abnorm Lymph % (Manual) 0 % 05/15/21 13:00 Metamyelocytes % 2 % (-0) H 05/15/21 13:00 Myelocytes % 2 % (-0) H 05/15/21 13:00 Nucleated RBC % Not Reportable 05/15/21 13:00 Neutrophils # (Manual) 9.6 10^3/uL (1.5-6.6) H 05/15/21 13:00 Lymphocytes # (Manual) 1.5 10^3/uL (1.5-3.5) 05/15/21 13:00 Monocytes # (Manual) 0.9 10^3/uL (0.0-1.0) 05/15/21 13:00 Eosinophils # (Manual) 0.0 10^3/uL (0-0.7) 05/15/21 13:00 Basophils # (Manual) 0.0 10^3/uL (0-0.1) 05/15/21 13:00 Nucleated RBCs 1 % 05/15/21 13:00 Manual Slide Review Indicated 05/15/21 13:00 RBC Morph Micro Appear 4+ ANISOCYTOSIS (NORMAL) 05/15/21 13:00 Sodium 125 mmol/L (135-145) L 05/15/21 13:43 Potassium 6.2 mmol/L (3.5-5.0) H* 05/15/21 13:43 Chloride 95 mmol/L (101-111) L 05/15/21 13:43 Carbon Dioxide 15 mmol/L (21-32) L 05/15/21 13:43 Anion Gap 15.0 (6-13) H 05/15/21 13:43 BUN 49 mg/dL (6-20) H 05/15/21 13:43 Creatinine 3.1 mg/dL (0.4-1.0) H 05/15/21 13:43 Estimated GFR (MDRD) 14 (>89) L 05/15/21 13:43 Glucose 41 mg/dL (70-100) L* 05/15/21 13:43 POC Whole Bld Glucose 125 mg/dL (70 - 100) H 05/15/21 15:18 Calcium 10.3 mg/dL (8.5-10.3) 05/15/21 13:43 Total Bilirubin 5.2 mg/dL (0.2-1.0) H 05/15/21 13:43 AST 398 IU/L (10-42) H 05/15/21 13:43 ALT 428 IU/L (10-60) H 05/15/21 13:43 Alkaline Phosphatase 283 IU/L (42-121) H 05/15/21 13:43 Total Protein 7.6 g/dL (6.7-8.2) 05/15/21 13:43 Albumin 2.5 g/dL (3.2-5.5) L 05/15/21 13:43 Globulin 5.1 g/dL (2.1-4.2) H 05/15/21 13:43 Albumin/Globulin Ratio 0.5 (1.0-2.2) L 05/15/21 13:43 Lipase 43 U/L (22-51) 05/15/21 13:43 Urine Color DARK YELLOW 05/15/21 15:21 Urine Clarity CLEAR (CLEAR) 05/15/21 15:21 Urine pH 5.0 PH (5.0-7.5) 05/15/21 15:21 Ur Specific [place] 1.025 (1.002-1.030) 05/15/21 15:21 Urine Protein NEGATIVE mg/dL (NEGATIVE) 05/15/21 15:21 Urine Glucose (UA) NEGATIVE mg/dL (NEGATIVE) 05/15/21 15:21 Urine Ketones NEGATIVE mg/dL (NEGATIVE) 05/15/21 15:21 Urine Occult Blood NEGATIVE (NEGATIVE) 05/15/21 15:21 Urine Nitrite POSITIVE (NEGATIVE) H 05/15/21 15:21 Urine Bilirubin NEGATIVE (NEGATIVE) 05/15/21 15:21 Urine Urobilinogen 1 (NORMAL) E.U./dL (NORMAL) 05/15/21 15:21 Ur Leukocyte Esterase NEGATIVE (NEGATIVE) 05/15/21 15:21 Urine RBC 0-5 /HPF (0-5) 05/15/21 15:21 Urine WBC 0-3 /HPF (0-5) 05/15/21 15:21 Ur Squamous Epith Cells RARE Squamous (<= Few) 05/15/21 15:21 Urine Bacteria Rare /HPF (None Seen) 05/15/21 15:21 Ur Microscopic Review INDICATED 05/15/21 15:21 Urine Culture Comments INDICATED 05/15/21 15:21 Nasal Adenovirus (PCR) NOT DETECTED 05/15/21 16:44 Nasal B. parapertussis DNA (PCR) NOT DETECTED 05/15/21 16:44 Nasal Coronavir 229E PCR NOT DETECTED 05/15/21 16:44 Nasal Coronavir HKU1 PCR NOT DETECTED 05/15/21 16:44 Nasal Coronavir NL63 PCR NOT DETECTED 05/15/21 16:44 Nasal Coronavir OC43 PCR NOT DETECTED 05/15/21 16:44 Nasal Enterovir/Rhinovir PCR NOT DETECTED 05/15/21 16:44 Nasal Influenza B PCR NOT DETECTED 05/15/21 16:44 Nasal Influenza A PCR NOT DETECTED 05/15/21 16:44 Nasal Parainfluen 1 PCR NOT DETECTED 05/15/21 16:44 Nasal Parainfluen 2 PCR NOT DETECTED 05/15/21 16:44 Nasal Parainfluen 3 PCR NOT DETECTED 05/15/21 16:44 Nasal Parainfluen 4 PCR NOT DETECTED 05/15/21 16:44 Nasal RSV (PCR) NOT DETECTED 05/15/21 16:44 Nasal B.pertussis DNA PCR NOT DETECTED 05/15/21 16:44 Nasal C.pneumoniae (PCR) NOT DETECTED 05/15/21 16:44 [place] Human Metapneumo PCR NOT DETECTED 05/15/21 16:44 Nasal M.pneumoniae (PCR) NOT DETECTED 05/15/21 16:44 Nasal SARS-CoV-2 (PCR) NOT DETECTED 05/15/21 16:44 ABX Reporting Has patient been on IV antibiotics over the past 48 hours?: No
[2021-05-16] MEDS: MORPHINE SOL 10 MG/0.5 ML ORAL SYRINGE PO SCH ×2 (14:00→18:09)
--- NOTE | 2021-05-16 17:15 | PHARMACY PROGRESS NOTE ---
- Best Possible Medication History Admit Date and Time: 05/15/21 1611 Processed by: Pharmacy Medication History completed: Yes Patient Interview: Pt unable to participate Secondary Source(s): Physician records, Insurance records, Previous admit rec ords As the person ultimately responsible for medication therapy, providers are able to order a medication from an existing home medication list in [facility] via the "Reconcile Routine" prior to Confirmation of that medication by applications support specialist. Such practice is discouraged except when the physician, in their clinical judgment, deems that a medical need exists for a medication without regard to previous use.
--- NOTE | 2021-05-16 19:03 | DISCHARGE SUMMARY ---
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 She sees Dr. Kathleen Gee at the [facility]. She was recently taken off Ibrance in April 2021 and had been receiving Zom eta infusions every 3 months. The patient has been experiencing nausea and decreased appetite for the past week. She was seen in the ED on Wednesday05/12/21 for dehydration. At that time her creatinine was 1.3. She was given 2L IV hydration and discharged home. She was seen at her primary care physician's office today where she was administered a dose of Solu-Medrol IM and Phenergan 25 mg and advised to go to the emergency department for further evaluation. Upon arrival in the ED the patient was somnolent. Work-up in the ED included a BMP which showed a potassium of 6.2 and creatinine of 3. The patient was given a dose of calcium gluconate 1 g. She was presented for admission for further management. Upon presentation to bedside the patient appears very pale/ashen. She has a slight grimace on her face suggesting discomfort. She minimally arouses to verbal or tactile stimuli. She is unable to follow commands. On auscultation of her lungs crackles appreciated. She has 3+ lower extremity edema as well. She is mildly tachypneic with respiratory rate occasionally as high as 30s. - HOSPITAL COURSE Hospital Course: She sees Dr. Kathleen Gee at the [facility]. The patient was taken off Ibrance in April 2021. She is on Zometa infusions every 3 months. She was last seen by her oncologist on May 06, 2021. The plan had been to potentially receive Piqray starting this week and Continue Faslodex monthly However initiation of Piqray Was dependent on liver findings on a CT scan that was to be done this week. If there were findings of visceral metastasis the plan had been to recommend hospice care. CT of the abdomen and pelvis done on 05/12/2021 showed extensive osseous metastasis and several pathologic compression fractures superimposed on the reverse S scoliosis of the visible spine. There was trace nonspecific ascites and moderate anasarca suggesting hypoproteinemia/third spacing. Bilateral pleural effusion, nonspecific. The patient has not been eating for the past week. Upon presentation at bedside she was very pale/ashen and minimally responsive to tactile or verbal stimuli. She was not able to follow commands or answer questions. Upon discussing with the patient's daughter highlighting how much more dehydrated she has become over 3 days of little/no oral intake (her creatinine went from 1.3-3), how pale/ashen she appeared and the discomfort she appeared to be in judging from the grimace on her face, I was concerned that the patient was likely not to last more than a week . After consideration the patient's daughter opted for comfort measures. I explained that with comfort measures our therapy would be directed at strictly comfort. We will administer something for pain, anxiety, increased secretions and or air hunger. She expressed understanding and was in agreement with the plan. Comfort measures were initiated. The daughter expressed that the patient had stated that she would not want to go through hospice at home. Rather she would prefer to be at a facility for respite while on hospice. On the evening of 05/16/2021, It was brought to my attention that the patient was unresponsive. Upon presentation to bedside she was unresponsive to tactile or verbal stimuli. Carotid or radial pulses were absent bilaterally. There were no spontaneous breath sounds. Breath and heart sounds were absent on auscultation. The patient's pupils were fixed dilated and unreactive to light. She was pronounced on 05/16/2021 at 1850 5 PM. Her daughter Monica Jordan who is next of kin was notified. - ALLERGIES Allergies/Adverse Reactions: Allergies Allergy/AdvReac Type Severity Reaction Status Date / Time pollen extracts Allergy Mild Respiratory Verified 05/15/21 13:04 - MEDICATIONS Home Medications: Ambulatory Orders Medication Instructions Recorded Confirmed Acetaminophen [Tylenol] 325 mg ORAL BID PRN 09/01/12 05/16/21 Calcium Carbonate [Calcium] 600 mg ORAL BID 09/01/12 05/16/21 Celecoxib [Celebrex] 200 mg PO DAILY 09/01/12 05/16/21 Multivitamin [Multivitamins] 1 each PO DAILY 09/01/12 05/16/21 Drury-3 Fatty Acids/Fish Oil 2 each PO DAILY 09/01/12 05/16/21 [Drury 3 1,000 mg Softgel] Pantoprazole Sodium 40 mg PO DAILY 09/01/12 05/16/21 Sennosides/Docusate Sodium [Senna 1 each PO DAILY PRN 09/01/12 05/16/21 Plus Tablet] Loratadine [Claritin] 10 mg PO DAILY 08/02/14 05/16/21 Cholecalciferol (Vitamin D3) 5,000 unit PO DAILY 06/18/15 05/16/21 [Vitamin D3] Fenofibric Acid (Choline) 45 mg PO DAILY 06/18/15 05/16/21 [Trilipix] HYDROcod/ACETAM 5/325 [Vicodin 1 - 2 ea PO Q4H PRN 08/01/15 05/16/21 5/325] Albuterol Sulfate [Proair Hfa 2 puffs INH BID 07/28/17 05/16/21 Inhaler] Fluticasone [Flonase] 1 spray MARIAM DAILY 09/20/20 05/16/21 Furosemide [Lasix] 20 mg PO DAILY 09/20/20 05/16/21 Zoledronic Acid 4 mg/100 ml 4 mg IV ONCE 09/20/20 05/16/21 [Zometa 4 mg/100 ml] inFLIXimab [Remicade] 400 mg IV ONCE 09/20/20 05/16/21 Alpelisib [Piqray] 200 mg PO QDAC 05/16/21 05/16/21 Fulvestrant [Faslodex] 500 mg IM ONCE 05/16/21 05/16/21 Olmesartan Medoxomil [Benicar] 20 mg PO DAILY 05/16/21 05/16/21 Ondansetron [Ondansetron Odt] 8 mg PO TID PRN 05/16/21 05/16/21 Palbociclib [Ibrance] 100 mg PO DAILY 05/16/21 05/16/21 - LABS Result Diagrams: 05/15/21 13:00 05/15/21 13:43 - TIME SPENT Time Spent in Discharge (Minutes): 15
--- NOTE | 2021-05-16 19:04 | Discharge Plan ---
Discharge Plan Problem Reviewed?: Yes Disposition: 20 Condition: Serious No Smoking: If you smoke, Please STOP! Call for help. Follow-up with: Umesh Francisco MD [Primary Care Provider] -
== END 2021-05-16 18:55 | disposition expired | DRG 683 ==
LOC: ED 12:46 → MS3 16:11
PROVIDERS: ADMIT Internal Medicine; ATTEND Internal Medicine
DX: N17.9 Acute kidney failure, unspecified (principal); C79.51 Secondary malignant neoplasm of bone; E86.0 Dehydration; C50.919 Malignant neoplasm of unspecified site of unspecified female breast; I10 Essential (primary) hypertension; T38.0X5A Adverse effect of glucocorticoids and synthetic analogues, initial encounter; E87.5 Hyperkalemia; R41.0 Disorientation, unspecified; R53.1 Weakness; R60.0 Localized edema; R63.8 Other symptoms and signs concerning food and fluid intake; Z20.822 Contact with and (suspected) exposure to COVID-19; Z51.5 Encounter for palliative care; Z66 Do not resuscitate; Z79.51 Long term (current) use of inhaled steroids; Z79.899 Other long term (current) drug therapy; Z92.21 Personal history of antineoplastic chemotherapy
CPT/HCPCS: 36415; 51702; 80053; 81001; 83690; 85025; 87086; 87631; 96374; 99281; 99285; A9270; 0202U; 81003